=== PATIENT | female | born 1960 | race Caucasian/White ===

== ENCOUNTER 2021-06-12 18:19 | Inpatient (IN) | payer BC, SELFPAY ==
[2021-06-12 18:37] VITALS: BP 127/65; PULSE 88; RESP 18; TEMP 36.8; O2SAT 96
[2021-06-12 18:52] VITALS: BMI 33.6
[2021-06-12 20:00] VITALS: BP 85/51; PULSE 93; RESP 18; TEMP 37.6; O2SAT 94
--- NOTE | 2021-06-12 20:18 | P.HP_ITS ---
Providers/Chief Complaint Admitting Physician: Heather Maldonado MD Chief Complaint: fever History of Present Illness 61-year-old lady transferred for direct admission from outside facility where she presented due to fevers was transferred to [facility] due to history of ESRD and needing dialysis which she normally gets on Tuesdays and via left chest tunneled catheter. She states the catheter has been in place for a long time, cannot tell me exactly when it was placed, but feels it was possibly more than 6 months ago. She also has history of multiple myeloma for which she is currently on break from chemotherapy due to recent (March) reaction secondary to one of the medications, she thinks it may have been Zarxio. She had received rounds of steroids for the rash which has been gradually improving. Currently with dry scaly skin over most of her body, but no further erythema. She reports feeling tired, weak in the last several days. Denies headache, nausea, vomiting or diarrhea, cough, shortness of breath, dysuria, or a new rash. Reports has diffuse aches which she states are chronic and just her . At outside facility she received ceftriaxone and vancomycin due to urinalysis suggestive of urinary tract infection. Chest x-ray also suggests possible pneumonia with present infiltrates. COVID-19 PCR test at outside facility was negative. Review of Systems 2 Const: Reports: fever(s), chills, body aches, fatigue and malaise Eyes: Denies: change in vision or eye redness ENMT: Denies: throat pain, oral sores or ear or mastoid pain Card: Denies: chest pain, edema, pre-syncope or dyspnea on exertion Resp: Denies: dyspnea, productive cough, change in phlegm color or hemoptysis GI: Denies: abdominal pain, nausea, vomiting, diarrhea, constipation, hematochezia or melena : Denies: flank pain, urinary frequency or hematuria Musc: Denies: back pain, joint swelling or joint redness Skin/Breast: Denies: rash (no new rash, improving extensive rash/skin reaction) or new lesions Neuro: Denies: headache(s), numbness in extremities, weakness in extremities, dizziness, confusion or seizure-like activity Endo: Denies: polyuria or polydipsia Yuri/Lymph: Denies: easy bleeding or purpura All/Imm: Denies: urticaria, throat swelling or tongue swelling Medications/Allergies Allergies Allergy/AdvReac Type Severity Reaction Status Date / Time filgrastim-sndz [From Zarxio] Allergy Severe ALGY-Rash Unverified 06/12/21 20:14 PFSH Acute PFSH: Medical History (Updated 06/12/21 @ 20:29 by Reji Cruz MD) Desquamative dermatitis ESRD on hemodialysis HLD (hyperlipidemia) Hypothyroidism Multiple myeloma Nephropathy Surgical History Port-A-Cath in place Vascular dialysis catheter in place Family History Other Cancer Social History (Updated 06/12/21 @ 20:24 by Reji Cruz MD) Smoking and tobacco status: never smoked Alcohol intake: never Substance/Drug Use: never Lives independently: Yes Household members: none Marital status: Current occupational status: disabled Vitals/I&O/Wt Last Vital Signs Temp 99.6 F 06/12/21 20:00 Pulse 93 06/12/21 20:00 Resp 18 06/12/21 20:00 BP 85/51 06/12/21 20:00 Pulse Ox 94 06/12/21 20:00 06/12/21 06/12/21 06/12/21 06:59 14:59 22:59 Intake Total 480 / 480 Balance 480 / 480 Physical Exam Const: COMMON NORMALS: patient oriented x3 NUTRITIONAL APPEARANCE: overweight ORIENTATION/CONSCIOUSNESS: Yes lethargic OTHER: Weak. HENMT: COMMON NORMALS: oropharynx normal Neck/C-Spine: COMMON NORMALS: no JVD Chest: OTHER: R port, L Aquino catheter Resp: COMMON NORMALS: normal respiratory effort and clear to auscultation bilaterally AUSCULTATION: clear to auscultation bilaterally Cardio: COMMON NORMALS: no JVD, regular rhythm, S1 normal heart sound present, S2 normal heart sound present and No murmurs present (Cardio) RHYTHM: regular rhythm HEART SOUNDS: S1 normal heart sound present and S2 normal heart sound present GI: COMMON NORMALS: Normal to inspection, nondistended, normoactive bowel sounds present, Soft to palpation and non-tender PALPATION: Yes Soft to palpation Extremity: COMMON NORMALS: no joint enlargement and no pedal edema Neuro: COMMON NORMALS: patient oriented x3 and moves all extremities Skin: COMMON NORMALS: no rashes or lesions noted GENERAL SKIN EXAM: no rashes or lesions noted, crusts (L eyelids), dry skin and other (Diffuse dry/scaly/cracked skin, no erythema. No weeping.) OTHER: Small area of eryhema (1-1.5cm) around entrance of Aquino catheter. Urinary Catheter Management: Mckeon: Cath Placed During This Visit: no Urethral Indwelling: Yes Reason for Continuing Indwelling Catheter: Accurate Measurement of Urinary Output in Critically Ill Patients Urinary Catheter Date of Insertion: 06/12/21 Data Micro: Microbiology 06/12/21 19:43 Blood Culture - Preliminary Blood SPECIMEN COLLECTED 06/12/21 19:40 Blood Culture - Preliminary Blood SPECIMEN COLLECTED 06/12/21 19:30 Blood Culture - Preliminary Blood SPECIMEN COLLECTED 06/12/21 19:42 Blood Culture - Preliminary Blood SPECIMEN COLLECTED A&P Assessment and plan (1) Fever: Possible sepsis with fever, tachycardia, source urinary tract infection, possible pneumonia. Cannot exclude bacteremia given port, Aquino catheter, discriminative rash in March which is taking a long time to heal, still with dry scaly skin over large portions of her body. Blood cultures requested from periphery as well as both access sites, port and the dialysis catheter. I am told dialysis catheter cannot be collected today and will need to be collected tomorrow with dialysis. Orders in place. Continue empiric antibiotic coverage at this time with Levaquin, vancomycin cover for pneumonia, urinary tract infection, possible translocation from the skin or catheter infection. Collect urine culture. Urine bacterial antigens, sputum culture if able to provide. MRSA PCR. COVID-19 PCR was negative. Status: Acute (2) Hypotension: Suspect likely adrenal insufficiency given history of multiple myeloma with chemotherapy, likely steroid use, but also recent steroids following this, the rash which she is no longer taking. Need arterial pressure 62 mmHg. Additional small bolus 250 mL of saline. Monitor blood pressure. Stress dose hydrocortisone. Possible septic shock, although less likely, not given 30 cc/kg due to ESRD, oliguria. Lactic acid 2.3-1.3. Recheck lactic acid. Status: Acute (3) UTI (urinary tract infection): Complicated UTI. Levaquin. Follow-up urine culture. Will obtain renal CT to exclude obstructive uropathy. Status: Acute (4) Pneumonia: Covid negative. Sputum culture. Bacterial antigens. MRSA PCR. Levaquin, vancomycin. Status: Acute (5) ESRD on hemodialysis: TS schedule. Nephrology consult. Status: Acute (6) Vascular dialysis catheter in place: She reports it may have been in place longer than 6 months. She is not aware of any plans for fistula or other access. Normally follows with nephrology in [place]. Blood cultures requested. Status: Acute (7) Port-A-Cath in place: Blood cultures collected. Status: Acute (8) Desquamative dermatitis: This has been gradually resolving. Still dry scaly skin over a large portion of her body. No erythema, weeping, sign of infection currently. Status: Acute (9) Multiple myeloma: Reports she is on break from chemotherapy given discomfort of rash which she believes was temporally related to Zarxio. Normally follows with hematology in [place]. Status: Acute (10) Hypothyroidism: Status: Acute Attestations Medical Necessity Statement*: Admission of over 2 midnights is anticipated for assessment management of fever, possible sepsis, possible septic shock with hypotension in a lady with underlying ESRD, multiple vascular access devices, multiple myeloma Coding Level of Care Code Acute Research Instrumentation Technician for [facility] Fwd Diagnoses Fever R50.9 Hypotension I95.9 UTI (urinary tract infection) N39.0 Pneumonia J18.9 ESRD on hemodialysis N18.6; Z99.2 V[address] dialysis catheter in place Z99.2 Port-A-Cath in place Z95.828 Desquamative dermatitis L30.8 Multiple myeloma C90.00 Hypothyroidism E03.9
[2021-06-12] MEDS: sodium chloride 0.9% 250 ML IV (20:33)
[2021-06-12 20:34] LABS: Lactic Sepsis W/Reflex 1.5 mmol/L (0.5-2.2)
--- NOTE | 2021-06-12 20:34 | CTR_ITS ---
PROCEDURE INFORMATION: Exam: CT Abdomen And Pelvis Without Contrast Exam date and time: 06/12/2021 8:34 PM Age: 61 years old Clinical indication: Abdominal pain; Generalized; Additional info: Complicated UTI TECHNIQUE: Imaging protocol: Computed tomography of the abdomen and pelvis without contrast. Radiation optimization: All CT scans at this facility use at least one of these dose optimization techniques: automated exposure control; mA and/or kV adjustment per patient size (includes targeted exams where dose is matched to clinical indication); or iterative reconstruction. COMPARISON: No relevant prior studies available. RADIATION DOSE METRICS: Total DLP (mGy-cm): 1801.1 FINDINGS: Tubes, catheters and devices: The urinary bladder is decompressed by catheter. Partially visualized implanted venous access port in the right chest wall. Lungs: Scattered small micro nodular opacities in the lung bases and the middle lobe and lingula. These nodules measure no more than 5 mm. Pleural spaces: Small symmetric pleural effusions with bibasilar atelectasis. Liver: 2 cm probable cyst in the right hepatic lobe. Gallbladder and bile ducts: A 1 cm gallstone in the gallbladder is nonobstructing. Pancreas: Normal. No ductal dilation. Spleen: Normal. No splenomegaly. Adrenal glands: Normal. No mass. Kidneys and ureters: Normal. No hydronephrosis. Stomach and bowel: Increased gas within the midportion of the colon. However there is no mechanical obstruction or wall thickening. Normal small bowel. Appendix: No evidence of appendicitis. Intraperitoneal space: Unremarkable. No free air. No significant fluid collection. Vasculature: Unremarkable. No abdominal aortic aneurysm. Lymph nodes: Unremarkable. No enlarged lymph nodes. Urinary bladder: Unremarkable as visualized. Reproductive: The uterus is distorted by numerous fibroids measuring up to 5 cm. Bones/joints: Chronic lower lumbar degenerative changes. There is also a mild chronic superior endplate fracture of L4. Subtle sclerotic lesion in the L1 vertebral body Soft tissues: Unremarkable. CT/CT kidney stone [id number] IMPRESSION: 1. No acute abdominal or pelvic findings. 2. Multi fibroid uterus and nonobstructing gallstones. 3. Pleural effusions with basilar atelectasis. 4. Multiple small nodular opacities in both lungs, significance uncertain. These could be postinflammatory but metastatic disease is not ruled out. Recommend comparison with priors, if available. If not, short-term follow-up. 5. Subtle area of sclerosis and L1. Suspect a hemangioma but the appearance is not definitive.
[2021-06-12] MEDS: heparin 5,000 unit/mL INJ 1 mL 5000 UNIT SUBCUT (20:35)
[2021-06-12] MEDS: hydrocortisone 100 mg/2 mL SDV IVP (20:42)
[2021-06-12] MEDS: levofloxacin-dextrose 5 % 750 MG/150 ML PREMIX 100 MG IV (20:48)
[2021-06-12 21:10] LABS: Add Urine Culture? No; Add Urine Microscopic? YES; Amorphous Sediment Urine 1+ /hpf; Bacteria Urine 1+ /hpf; Bilirubin Urine Neg (Negative); Blood Urine 2+ (Negative); Glucose Urine UA Norm (Normal); Ketones Urine Negative (Negative); Leukocyte Esterase Urine 2+ (Negative); Nitrate Urine Positive (Negative); Protein Urine 1+ (Negative); RBC Urine 0-4 /hpf (0-2); Squamous Epithelial Cell Urine 0-4 /hpf (0-5); Urine Appearance Clear (CLEAR); Urine Color Yellow (Yellow); Urobilinogen Urine Norm (Negative); WBC Urine TOO NUMEROUS TO CNT /hpf (0-5); pH Urine 5 (5-7)
[2021-06-12 23:33] VITALS: BP 101/62; PULSE 93; RESP 18; TEMP 36.8; O2SAT 94
[2021-06-12 23:46] LABS: Glomerular Filtration Rate 6.6 mL/min (90-130)
[2021-06-13] VITALS (8 sets, daily range): BP systolic 91–108; BP diastolic 53–71; PULSE 68–101; RESP 16–20; TEMP 36.4–37.4; O2SAT 93–98
[2021-06-13] MEDS: vancomycin 1,000 MG in sodium chloride 0.9% 250 ML 250 MG IV ×2 (00:34→20:09)
[2021-06-13] MEDS: hydrocortisone 100 mg/2 mL SDV IVP ×4 (02:30→20:31)
[2021-06-13 05:24] LABS: Basophils # 0.1 10^3/uL (0.0-0.1); Basophils % 0.7 %; Hemoglobin 8.6 g/dL (11.5-15.3); Lymphocytes # 0.2 10^3/uL (0.8-4.8); Lymphocytes % 1.3 %; Mean Corpuscular HGB Conc 33.1 g/dL (30.0-36.0); Mean Corpuscular Hemoglobin 32.6 pg (28.0-34.0); Mean Corpuscular Volume 98.5 fl (81-99); Mean Platelet Volume 11.5 fL (7.4-10.4); Monocytes # 0.7 10^3/uL (0.2-0.9); Monocytes % 5.6 %; Neutrophils # 11.51 10^3/uL (1.8-7.7); Nucleated Red Blood Cells % 0 %; Platelet Count 89 10^3/cmm (130-400); Red Blood Count 2.64 10^6/uL (4.1-5.3); White Blood Count 12.7 10^3/uL (4.0-10.0)
[2021-06-13 05:44] LABS: Alanine Aminotransferase 59 U/L (0-33); Albumin Level 2.4 g/dL (3.5-5.2); Alkaline Phosphatase 154 IU/L (35-105); Anion Gap 21.6 (5-19); Aspartate Amino Transferase 80 U/L (0-32); Calcium 7.6 mg/dL (8.5-10.5); Carbon Dioxide 17 mmol/L (22-29); Chloride 96 mmol/L (98-107); Globulin 2.3 g/dL (1.3-4.6); Glomerular Filtration Rate 6.6 mL/min (90-130); Glucose 127 mg/dL (65-115); Magnesium 2.6 mg/dL (1.7-2.3); Osmolality Calculated 304 mOsm/kg (285-295); Phosphorus 5.8 mg/dL (2.5-4.5); Potassium 4.6 mmol/L (3.5-5.1); Sodium 130 mmol/L (136-145); Total Bilirubin 0.5 mg/dL (0.15-1.2); Total Protein 4.7 g/dL (6.6-8.7)
[2021-06-13 05:47] LABS: Blood Urea Nitrogen 104 mg/dL (8-23)
[2021-06-13 06:03] LABS: Slide Review Slide Review Perform
[2021-06-13] MEDS: heparin 5,000 unit/mL INJ 1 mL 5000 UNIT SUBCUT ×2 (08:40→20:00)
--- NOTE | 2021-06-13 09:31 | PM.CONSULT ---
Providers/Reason For Consult Consulting Physician/Specialty*: Nephro Reason for Consult*: Eval for ESRD Attending Physician: Reji Cruz History of Present Illness History of Present Illness Thank you for consultation, today at the pleasure of reviewing this 61-year-old female for evaluation of end-stage renal disease and its management. She is on dialysis on Tuesdays and Saturdays and last got dialysis last Saturday. End-stage renal disease she believes secondary to multiple myeloma, however, she is not 100% sure. She presents with fevers and generally feeling unwell. Initial evaluation has demonstrated evidence of urinary tract infection, possible pneumonia. Blood cultures are sent and pending. She has a hemodialysis port in the left chest wall. Review of Systems Narrative: ROS - 12 point review of systems completed per HPI and subjective assessment, this includes Constitutional: Weakness, fatigue Respiratory: No SOB on exertion, comfortable at rest CardioVasc: No chest pain, palpitations Gastrointestinal: No nausea, no vomiting Neurological: No seizures, no AMS Derm: No new rashes, lesions or wounds Immunological: No seasonal and no food allergies Medications/Allergies Allergies Allergy/AdvReac Type Severity Reaction Status Date / Time filgrastim-sndz [From Zarxio] Allergy Severe ALGY-Rash Verified 06/13/21 08:56 Current Medications Generic Name Dose Route Start Last Admin Trade Name Freq PRN Reason Stop Dose Admin Heparin Sodium (Porcine) 5,000 unit 06/12/21 20:00 06/13/21 08:40 Heparin 5,000 Unit/Ml Inj 1 Ml SUBCUT 5,000 unit Q12H DESIREE Administration Hydrocortisone Sodium Succinate 100 mg 06/12/21 20:00 06/13/21 08:40 Hydrocortisone 100 Mg/2 Ml Sdv IVP 100 mg Q6H DESIREE Administration Levofloxacin/Dextrose 750 mg in 150 mls @ 100 mls/hr 06/12/21 19:45 06/12/21 22:25 Levaquin-D5w IV Infused Q48H DESIREE Infusion Protocol PFSH Acute PFSH: Medical History (Updated 06/12/21 @ 20:29 by Reji Cruz MD) Desquamative dermatitis ESRD on hemodialysis HLD (hyperlipidemia) Hypothyroidism Multiple myeloma Nephropathy Surgical History Port-A-Cath in place Vascular dialysis catheter in place Family History Other Cancer Social History (Updated 06/12/21 @ 20:24 by Reji Cruz MD) Smoking and tobacco status: never smoked Alcohol intake: never Substance/Drug Use: never Lives independently: Yes Household members: none Marital status: Current occupational status: disabled Vitals/I&O/Wt Last Vital Signs Temp 98.4 F 06/13/21 08:00 Pulse 74 06/13/21 08:00 Resp 18 06/13/21 08:00 BP 106/54 06/13/21 08:00 Pulse Ox 98 06/13/21 08:00 06/12/21 06/13/21 06/13/21 22:59 06:59 14:59 Intake Total 880 / 880 250 / 1130 500 / 500 Output Total 450 / 450 Balance 880 / 880 -200 / 680 500 / 500 Weight last 48 hrs Weight 74.48 kg Weight 109.316 kg Physical Exam Narrative: Constitutional: Awake, comfortable HEENT: Wet mucosa, no jvp, non icteric Lungs: Bilaterally clear without discernible wheeze, rales in all lung zones CVS: S1 S2, no murmurs Abdo: Soft, BS ok Ext 4: Minimal edema, peripheral perfusion with no cyanosis Neurological: Grossly non-focal Urinary Catheter Management: Mckeon: Cath Placed During This Visit: yes Urethral Indwelling: Yes Reason for Continuing Indwelling Catheter: Accurate Measurement of Urinary Output in Critically Ill Patients Urinary Catheter Date of Insertion: 06/12/21 Data : 06/13/21 05:15 06/13/21 05:15 Micro: Microbiology 06/12/21 20:30 Bacterial Antigens - Final Urine,Clean Catch 06/12/21 20:30 Legionella Urinary Antigen - Final Urine Catheterized 06/12/21 19:43 Blood Culture - Preliminary Blood SPECIMEN COLLECTED 06/12/21 19:40 Blood Culture - Preliminary Blood SPECIMEN COLLECTED 06/12/21 19:30 Blood Culture - Preliminary Blood SPECIMEN COLLECTED 06/12/21 19:42 Blood Culture - Preliminary Blood SPECIMEN COLLECTED A&P Assessment and plan (1) ESRD on hemodialysis: 1. ESRD We will plan to do hemodialysis today, 2K bath, ultrafiltration 2 L Daily evaluation for dialysis needs, likely plan to do dialysis again on Saturday if she remains in the hospital. Dose medication for GFR less than 15 on dialysis. 2. Fevers She feels generally poorly, nonspecific and nonlocalizing symptoms. Denies symptoms of urinary tract infection and denies symptoms of pneumonia. Blood cultures pending, if positive will take out dialysis catheter. 3. Anemia, thrombocytopenia Continue to monitor during hospitalization, likely secondary to myeloma/chemo, will defer management to outpatient scalp treatment specialist. 4. Chemistry Minor noncritical aberration including low sodium, acidosis, should correct with dialysis. Corrected calcium within normal range 5. Hemodynamics Soft blood pressure, being treated empirically for adrenal insufficiency, being treated for sepsis. Thank you for consultation Cheikh Waddell MD Nephrology [phone] Patient seen and examined via telemedicine, with the assistance of the bedside RN > 25 min spent in evaluation and mgmt of patient Status: Acute Consult Attestations Medical Necessity Statement: eval for ESRD Coding Level of Care Code Acute Auto Inspector for [facility] Diagnoses ESRD on hemodialysis N18.6; Z99.2
--- NOTE | 2021-06-13 10:55 | PC.CHAP ---
Pastoral Care Encounter/Spiritual Assessment Type of Contact [] Declined physical fitness teacher visit [] Patient/Family/Request visit [] Outpatient visit [] Follow-up visit [] Physician referral [] Code/Alert [x] Routine visit [] Staff referral [] Actively dying [] Patient sleeping [] Family support [] [] Out of room [] Palliative care [] [] Receiving care in room [] Pre-surgical visit [] Trauma [] Long length of stay [] ICU visit [] Other: Relational/Emotional Strength [x] Patient feels connected with others/family/visitors/staff [] Distress [] Loneliness/isolation [] Abandonment Spirituality of Patient [x] Person of Jaclyn [] Attends Quaker of their Jaclyn [x] Believes in Prayer [] Reads Bible or Zoroastrian materials [] There are Spiritual issues to be addressed Chief Unit Forester Interventions [x] Prayer [x] Active listening [x] Non-anxious presence [x] Spiritual/emotional support [] Crisis/trauma care [] Spiritual counseling [] Bereavement support [] Provided bereavement packet [] Provided Bible/devotional materials [] Provided toy/stuffed animal, coloring book to patient or family member [] Provided Communion [] Anointing/[place] [] Salvation [x] Completed spiritual assessment [] Other: Impact on Illness or Injury [] Angry [] Fearful [] Anxious [] Often cries [] Exhaustion [] Unable to work [] Unable to attend sikhism [] Unable to walk/stand [] Unable to read [] Unable to drive [] Unable to eat/drink [] Unable to sleep [] Unable to be with family [] Patient intubated [] Other: Summary Pt says she has never and has no children. She lives alone with a variety of animals. Her brother who lives nearby is caring for her animals while she is in hospital. She has numerous friends also checking in on her. Time spent with patient 10m
[2021-06-13 12:12] LABS: Bacillus cereus group Not Detected (NOT DETECT); Bacillus subtillis group Not Detected (NOT DETECT); Corynebacterium Not Detected (NOT DETECT); Cutibacterium acnes (P.acnes) Not Detected (NOT DETECT); Enterococcus Not Detected (NOT DETECT); Enterococcus faecalis Not Detected (NOT DETECT); Enterococcus faecium Not Detected (NOT DETECT); Lactobacillus species Not Detected (NOT DETECT); Listeria Not Detected (NOT DETECT); Listeria monocytogenes Not Detected (NOT DETECT); Micrococcus Not Detected (NOT DETECT); Pan Candida Not Detected (NOT DETECT); Pan Gram-Negative Not Detected (NOT DETECT); Staphylococcus epidermidis Not Detected (NOT DETECT); Staphylococcus lugdunensis Not Detected (NOT DETECT); Staphylococcus species Detected (NOT DETECT); Streptococcus agalactiae Not Detected (NOT DETECT); Streptococcus anginosus group Not Detected (NOT DETECT); Streptococcus pneumoniae Not Detected (NOT DETECT); Streptococcus pyogenes Not Detected (NOT DETECT); Streptococcus species Not Detected (NOT DETECT); mecA Not Detected (NOT DETECT); mecC Not Detected (NOT DETECT)
--- NOTE | 2021-06-13 14:12 | PC.NURSE ---
Patient to Dialysis at this time.
--- NOTE | 2021-06-13 14:59 | PM.PN ---
Subjective Subjective: She still overall not feeling well, but is feeling better than yesterday. Although stronger. With more energy. Blood pressures have improved today. Vitals/I&O/Wt Last Vital Signs Temp 98.6 F 06/13/21 11:57 Pulse 68 06/13/21 11:57 Resp 17 06/13/21 11:57 BP 106/58 06/13/21 11:57 Pulse Ox 97 06/13/21 11:57 06/12/21 06/13/21 06/13/21 22:59 06:59 14:59 Intake Total 880 / 880 250 / 1130 1220 / 1220 Output Total 450 / 450 Balance 880 / 880 -200 / 680 1220 / 1220 Weight last 48 hrs Weight 74.48 kg Weight 109.316 kg Physical Exam Const: COMMON NORMALS: patient oriented x3 NUTRITIONAL APPEARANCE: overweight OTHER: More alert, interactive. HENMT: COMMON NORMALS: oropharynx normal Neck/C-Spine: COMMON NORMALS: no JVD Chest: OTHER: R port, L Aquino catheter Resp: COMMON NORMALS: normal respiratory effort and clear to auscultation bilaterally AUSCULTATION: clear to auscultation bilaterally Cardio: COMMON NORMALS: no JVD, regular rhythm, S1 normal heart sound present, S2 normal heart sound present and No murmurs present (Cardio) RHYTHM: regular rhythm HEART SOUNDS: S1 normal heart sound present and S2 normal heart sound present GI: COMMON NORMALS: Normal to inspection, nondistended, normoactive bowel sounds present, Soft to palpation and non-tender PALPATION: Yes Soft to palpation Extremity: COMMON NORMALS: no joint enlargement and no pedal edema Neuro: COMMON NORMALS: patient oriented x3 and moves all extremities Skin: COMMON NORMALS: no rashes or lesions noted GENERAL SKIN EXAM: no rashes or lesions noted, crusts (L eyelids), dry skin and other (Diffuse dry/scaly/cracked skin, no erythema. No weeping.) OTHER: Improved small area of eryhema (1-1.5cm) around entrance of Aquino catheter. Urinary Catheter Management: Mckeon: Cath Placed During This Visit: yes Urethral Indwelling: Yes Reason for Continuing Indwelling Catheter: Accurate Measurement of Urinary Output in Critically Ill Patients Urinary Catheter Date of Insertion: 06/12/21 Data : 06/13/21 05:15 06/13/21 05:15 Micro: Microbiology 06/12/21 19:43 Blood Culture - Preliminary Blood SPECIMEN COLLECTED 06/12/21 19:40 Blood Culture - Preliminary Blood SPECIMEN COLLECTED 06/12/21 19:30 Blood Culture - Preliminary Blood SPECIMEN COLLECTED 06/12/21 19:42 Blood Culture - Preliminary Blood Staphylococcus aureus 06/12/21 20:30 MRSA Culture - Final Nose 06/13/21 12:11 Blood Culture - Preliminary Blood SPECIMEN COLLECTED 06/13/21 12:09 Blood Culture - Preliminary Blood SPECIMEN COLLECTED 06/12/21 20:30 Bacterial Antigens - Final Urine,Clean Catch 06/12/21 20:30 Legionella Urinary Antigen - Final Urine Catheterized A&P Assessment and plan (1) Fever: Today leukocytosis 12.7. Fever appears to be better, with resolution of tachycardia. Complicated urinary tract infection with sepsis possible pneumonia. No obstructive uropathy on CT abdomen pelvis. Possible bacteremia, now with positive peripheral blood culture 1/3 bottles with Staph aureus. Follow-up cultures and remaining blood cultures to get a better idea if true bacteremia. Cannot exclude bacteremia given port, Aquino catheter, discriminative rash in March which is taking a long time to heal, still with dry scaly skin over large portions of her body. Urine bacterial antigens negative. MRSA negative. COVID-19 PCR was negative. Continue Levaquin, vancomycin. Status: Acute (2) Positive blood culture: Status: Acute (3) Hypotension: Blood pressure improved with stress dose steroids. Continue for now. Will need a taper. Discussed with her. Suspect likely adrenal insufficiency given history of multiple myeloma with chemotherapy, likely steroid use, but also recent steroids following this, the rash which she is no longer taking. Status: Acute (4) UTI (urinary tract infection): Complicated UTI. Levaquin. Follow-up urine culture. Will obtain renal CT to exclude obstructive uropathy. Status: Acute (5) Pneumonia: Covid negative. Sputum culture. Bacterial antigens. MRSA PCR. Levaquin, vancomycin. Status: Acute (6) ESRD on hemodialysis: TS schedule. Nephrology consult. HD today. Blood pressure has been better, did not require pressors, improved with stress dose steroids, but blood pressure softer with dialysis. Requested midodrine. Status: Acute (7) Vascular dialysis catheter in place: She reports it may have been in place longer than 6 months. She is not aware of any plans for fistula or other access. Normally follows with nephrology in [place]. Blood cultures requested. Status: Acute (8) Port-A-Cath in place: Blood cultures collected. Status: Acute (9) Desquamative dermatitis: This has been gradually resolving. Still dry scaly skin over a large portion of her body. No erythema, weeping, sign of infection currently. Status: Acute (10) Multiple myeloma: Reports she is on break from chemotherapy given discomfort of rash which she believes was temporally related to Zarxio. Normally follows with hematology in [place]. Status: Acute (11) Hypothyroidism: Status: Acute (12) Pulmonary nodules: Incidentally noted on CT abdomen pelvis. Uncertain significance. Possibly postinflammatory, metastatic disease not excluded. Will need comparison with prior studies once following up in [place]. If not available possibly short-term imaging follow-up. Status: Acute Attestations Medical Necessity Statement*: Continue admission for assessment of management of improving sepsis, pneumonia, complicated GI, possible bacteremia in a lady with multiple vascular access devices. ESRD. Coding Level of Care Code Acute Sergeant At Arms for [employer] Fwd Diagnoses Fever R50.9 Hypotension I95.9 UTI (urinary tract infection) N39.0 Pneumonia J18.9 ESRD on hemodialysis N18.6; Z99.2 Vascular dialysis catheter in place Z99.2 Port-A-Cath in place Z95.828 Desquamative dermatitis L30.8 Multiple myeloma C90.00 Hypothyroidism E03.9 Positive blood culture R78.81 Pulmonary nodules R91.8
[2021-06-13] MEDS: midodrine 5 mg TABLET PO ×2 (15:07→22:37)
--- NOTE | 2021-06-13 15:13 | PC.HD ---
Difficulty drawing from both ports. Immediately upon treatment initiation, this RN had to reverse lines. Continued issues with AP alarms. Within 10 min circuit had clotted to the point where blood from circuit was unable to be returned. Restrung and received orders for loading dose of heparin 2000 units. trx initiated again with continued high AP pressures which necessitated lowering BFR to 250 in order to obtain any kind of trx. BP dropped to 77/48 after administration of steroids and midodrine. UF turned off.
[2021-06-13] MEDS: alteplase 1 mg/mL SDV 2 mL 4 MG INTRACATH (15:53)
--- NOTE | 2021-06-13 18:46 | PC.NURSE ---
Report to [facility] at this time.
[2021-06-14] VITALS (7 sets, daily range): BP systolic 92–107; BP diastolic 54–67; PULSE 87–95; RESP 18–19; TEMP 36.6–37.3; O2SAT 92–95
[2021-06-14] MEDS: hydrocortisone 100 mg/2 mL SDV IVP ×2 (02:46→08:32)
[2021-06-14 05:41] LABS: Basophils # 0.2 10^3/uL (0.0-0.1); Basophils % 0.9 %; Hematocrit 25.9 % (37.0-47.0); Hemoglobin 8.8 g/dL (11.5-15.3); Lymphocytes # 0.4 10^3/uL (0.8-4.8); Lymphocytes % 2.1 %; Mean Corpuscular Hemoglobin 33.2 pg (28.0-34.0); Mean Corpuscular Volume 97.7 fl (81-99); Mean Platelet Volume 12.9 fL (7.4-10.4); Monocytes # 0.9 10^3/uL (0.2-0.9); Monocytes % 4.5 %; Neutrophils # 18.45 10^3/uL (1.8-7.7); Neutrophils % 90.2 %; Nucleated Red Blood Cells % 0 %; Platelet Count 109 10^3/cmm (130-400); Red Blood Count 2.65 10^6/uL (4.1-5.3); Red Cell Distribution Width 15.2 % (12.1-15.1); White Blood Count 20.5 10^3/uL (4.0-10.0)
[2021-06-14 06:07] LABS: Alanine Aminotransferase 84 U/L (0-33); Albumin Level 2.4 g/dL (3.5-5.2); Alkaline Phosphatase 152 IU/L (35-105); Anion Gap 19.2 (5-19); Aspartate Amino Transferase 113 U/L (0-32); Blood Urea Nitrogen 76 mg/dL (8-23); Carbon Dioxide 21 mmol/L (22-29); Chloride 96 mmol/L (98-107); Globulin 1.7 g/dL (1.3-4.6); Glomerular Filtration Rate 10.2 mL/min (90-130); Glucose 165 mg/dL (65-115); Osmolality Calculated 300 mOsm/kg (285-295); Potassium 4.2 mmol/L (3.5-5.1); Sodium 132 mmol/L (136-145); Total Bilirubin 0.4 mg/dL (0.15-1.2); Total Protein 4.1 g/dL (6.6-8.7)
[2021-06-14] MEDS: heparin 5,000 unit/mL INJ 1 mL 5000 UNIT SUBCUT ×2 (08:32→19:28)
--- NOTE | 2021-06-14 09:48 | P.PN_ITS ---
Subjective Subjective: Dialysis went well yesterday, however, the line was sluggish, alteplase currently instilled into the dialysis ports. No further fevers or chills. Blood culture noted to be positive for staph aureus. She feels better since admission. Remains a little bit weak but otherwise okay. Vitals/I&O/Wt Last Vital Signs Temp 97.8 F 06/14/21 07:51 Pulse 91 06/14/21 07:51 Resp 19 H 06/14/21 04:00 BP 103/67 06/14/21 07:51 Pulse Ox 94 06/14/21 07:51 06/13/21 06/14/21 06/14/21 22:59 06:59 14:59 Intake Total 490 / 1710 780 / 2490 Output Total 300 / 300 Balance 490 / 1710 480 / 2190 Weight last 48 hrs Weight 74.979 kg Weight 74.48 kg Weight 109.316 kg Physical Exam Narrative: Constitutional: Awake, comfortable HEENT: Wet mucosa, no jvp, non icteric Lungs: Bilaterally clear without discernible wheeze, rales in all lung zones CVS: S1 S2, no murmurs Abdo: Soft, BS ok Ext 4: Minimal edema, peripheral perfusion with no cyanosis Neurological: Grossly non-focal Urinary Catheter Management: Mckeon: Cath Placed During This Visit: yes Urethral Indwelling: Yes Reason for Continuing Indwelling Catheter: Accurate Measurement of Urinary Output in Critically Ill Patients Urinary Catheter Date of Insertion: 06/12/21 Data : 06/14/21 05:19 06/14/21 05:19 Micro: Microbiology 06/12/21 20:30 Legionella Urinary Antigen - Final Urine Catheterized Urine Culture - Preliminary Staphylococcus aureus 06/12/21 19:43 Blood Culture - Preliminary Blood NEGATIVE TO DATE 06/12/21 19:40 Blood Culture - Preliminary Blood NEGATIVE TO DATE 06/12/21 19:30 Blood Culture - Preliminary Blood NEGATIVE TO DATE 06/12/21 19:42 Blood Culture - Preliminary Blood Staphylococcus aureus 06/12/21 20:30 MRSA Culture - Final Nose 06/13/21 12:11 Blood Culture - Preliminary Blood SPECIMEN COLLECTED 06/13/21 12:09 Blood Culture - Preliminary Blood SPECIMEN COLLECTED 06/12/21 20:30 Bacterial Antigens - Final Urine,Clean Catch A&P Assessment and plan (1) ESRD on hemodialysis: 1. ESRD Received dialysis yesterday. Plan next dialysis treatment on Saturday.l. Dose medication for GFR less than 15 on dialysis. 2. Fevers She feels generally poorly, nonspecific and nonlocalizing symptoms. Denies symptoms of urinary tract infection and denies symptoms of pneumonia. Staph aureus noted in 1 out of 3 blood cultures, apparently positive from outsi de referring facility. May need line to be removed. 3. Anemia, thrombocytopenia Continue to monitor during hospitalization, likely secondary to myeloma/chemo, will defer management to outpatient insurance verification rep 4. Chemistry Minor noncritical aberration including low sodium, acidosis noted, monitor for now 5. Hemodynamics Soft blood pressure, being treated empirically for adrenal insufficiency, being treated for sepsis. Thank you for consultation Cheikh Waddell MD Nephrology [phone] Patient seen and examined via telemedicine, with the assistance of the bedside RN > 25 min spent in evaluation and mgmt of patient Status: Acute Attestations Medical Necessity Statement*: Eval for ESRD Coding Level of Care Code Acute Bow Maker Gift Wrapping for Julius Deluna Diagnoses ESRD on hemodialysis N18.6; Z99.2
[2021-06-14] MEDS: hydrocortisone 100 mg/2 mL SDV 50 MG IVP ×2 (13:35→21:36)
--- NOTE | 2021-06-14 18:08 | P.CONIM_ITS ---
Providers/Reason For Consult Consulting Physician/Specialty*: Dwayne Victor MD Reason for Consult*: Catheters induced Bactremia Requesting Physician: Dr Cruz Attending Physician: Reji Cruz History of Present Illness History of Present Illness Chief complaint: I am sick with catheters HPI: Ms.Darlene Pickard is a 61 year old female with multiple medical problems includin g but not limited to end-stage renal disease and poor IV access that required placement of left upper chest tunneled hemodialysis catheter and right upper chest PowerPort at outside facility back in December 2020. Patient was transferred to [facility] from outside facility because of persistent fevers. Also the patient does have history of desquamation of the skin and history of multiple myeloma. Blood cultures were obtained and there was a concern about contamination versus a true infection reflecting bacteremia might be related to different devices the patient has. CT scan Abdomen and Pelvis: 1. No acute abdominal or pelvic findings. 2. Multi fibroid uterus and nonobstructing gallstones. 3. Pleural effusions with basilar atelectasis. 4. Multiple small nodular opacities in both lungs, significance uncertain. These could be postinflammatory but metastatic disease is not ruled out. Recommend comparison with priors, if available. If not, short-term follow-up. 5. Subtle area of sclerosis and L1. Suspect a hemangioma but the appearance is not definitive. Patient does undergo hemodialysis Tuesdays and Saturdays weekly. General surgery was consulted for further evaluation potential explantation of the intravascular devices and potential explantation ? Review of Systems General: Reports: 10 or more systems reviewed and unremarkable except in HPI and below Medications/Allergies Home Medications Medication Instructions Recorded Confirmed Last Taken Type acyclovir 200 mg capsule 200 mg PO BID 06/13/21 06/13/21 Unknown History clobetasol 0.05 % topical ointment 1 applic TOPICAL DAILY 06/13/21 06/13/21 Unknown History famotidine 20 mg tablet See Rx Instructions .ROUTE .COMPLEX 06/13/21 06/13/21 Unknown History hydroxyzine HCl 25 mg tablet 25 mg PO QID 06/13/21 06/13/21 Unknown History levothyroxine 50 mcg tablet 50 mcg PO DAILY 06/13/21 06/13/21 Unknown History lidocaine HCl 2.5 % topical 1 ea TOPICAL DAILY PRN 06/13/21 06/13/21 Unknown History ointment simvastatin 20 mg tablet 20 mg PO DAILY 06/13/21 06/13/21 Unknown History Allergies Allergy/AdvReac Type Severity Reaction Status Date / Time filgrastim-sndz [From [facility]] Allergy Severe ALGY-Rash Verified 06/14/21 18:11 Current Medications Generic Name Dose Route Start Last Admin Trade Name Freq PRN Reason Stop Dose Admin Heparin Sodium (Porcine) 5,000 unit 06/12/21 20:00 06/14/21 08:32 Heparin 5,000 Unit/Ml Inj 1 Ml SUBCUT 5,000 unit Q12H DESIREE Administration Hydrocortisone Sodium Succinate 50 mg 06/14/21 14:30 06/14/21 13:35 Hydrocortisone 100 Mg/2 Ml Sdv IVP 50 mg Q6H DESIREE Administration Midodrine 5 mg 06/13/21 14:57 06/13/21 22:37 Midodrine 5 Mg Tablet PO 5 mg TID PRN Administration HYPOTENSION PFSH Acute PFSH: Medical History Desquamative dermatitis ESRD on hemodialysis HLD (hyperlipidemia) Hypothyroidism Multiple myeloma Nephropathy Surgical History Port-A-Cath in place Vascular dialysis catheter in place Family History Other Cancer Social History Smoking and tobacco status: never smoked Alcohol intake: never Substance/Drug Use: never Lives independently: Yes Household members: none Marital status: Current occupational status: disabled Vitals/I&O/Wt Last Vital Signs Temp 98.6 F 06/14/21 16:00 Pulse 87 06/14/21 16:00 Resp 18 06/14/21 16:00 BP 107/65 06/14/21 16:00 Pulse Ox 95 06/14/21 16:00 06/14/21 06/14/21 06/14/21 06:59 14:59 22:59 Intake Total 780 / 2490 240 / 240 Output Total 300 / 300 250 / 250 Balance 480 / 2190 -10 / -10 Weight last 48 hrs Weight 165 lb 4.8 oz Weight 164 lb 3.2 oz Weight 241 lb Physical Exam Narrative: Patient is conscious alert oriented X3 No apparent distress BMI Head and neck examination PERRLA no masses no cervical lymphadenopathy no jaundice Right upper chest Port-A-Cath in place and left upper chest tunneled hemodialysis catheter Cardiac examination audible S1-S2 no murmurs no gallops no arrhythmias Chest is clear bilateral,abscence of Rhonchi or wheezes,no surgical emphysema Abdomen nontender nondistended soft no organomegaly guarding or rigidity/no signs of peritonitis Generalized exfoliative skin disorder Extremities no cyanosis no clubbing no edema Urinary Catheter Management: Mckeon: Cath Placed During This Visit: yes Urethral Indwelling: Yes Reason for Continuing Indwelling Catheter: Accurate Measurement of Urinary Output in Critically Ill Patients Urinary Catheter Date of Insertion: 06/12/21 Data : 06/15/21 03:23 06/15/21 03:23 Micro: Microbiology 06/13/21 12:11 Blood Culture - Preliminary Blood NEGATIVE TO DATE 06/13/21 12:09 Blood Culture - Preliminary Blood NEGATIVE TO DATE 06/12/21 19:42 Blood Culture - Preliminary Blood Staphylococcus aureus 06/12/21 20:30 Legionella Urinary Antigen - Final Urine Catheterized Urine Culture - Preliminary Staphylococcus aureus 06/12/21 19:43 Blood Culture - Preliminary Blood NEGATIVE TO DATE 06/12/21 19:40 Blood Culture - Preliminary Blood NEGATIVE TO DATE 06/12/21 19:30 Blood Culture - Preliminary Blood NEGATIVE TO DATE 06/12/21 20:30 MRSA Culture - Final Nose A&P Assessment and plan (1) Fever: Plan of care; After thorough history physical examination and reviewing the chart and reviweing the images with my personal intrepretation.and further discussing the case with Dr. Sampson the hand stemmer and Dr. Cruz hospitalist .I counseled the patient for removal of right upper chest Port-A-Cath and left upper tunneled hemodialysis catheter, indications, risks including possibility of , stroke, heart attack, major bleeding, infection, pneumonia, organ failure, failure to benefit, prolonged hospital stay, pain after the procedure pneumothorax that may require Chest tube(s) placement and potential injury of major vascular structures that may require Thoractomy, benefits,indications and alternatives were all discussed with the patient, patient understands and is interested to proceed. Rationale was carefully and clearly discussed with the patient.Appropriate informed consent have been reviewed and signed. Status: Acute Coding Level of Care Code Acute Director Of Instrumental Music for g Fwd Diagnoses Fever R50.9
--- NOTE | 2021-06-14 18:34 | P.CONIM_ITS ---
Providers/Reason For Consult Consulting Physician/Specialty*: KELSI Mooney MD/cardiology Reason for Consult*: Patient with bacteremia, multiple IV access site; rule out endocarditis Requesting Physician: Dr. Cruz Attending Physician: Reji Cruz History of Present Illness History of Present Illness Cierra Pickard is a 61 year old female who is transferred to ICU from [facility] present with complaints of generalized weakness/lethargy. She was found to have low-grade fever. Had a urine showed evidence of UTI. Chest x-ray was suggestive of pneumonia. Urine culture and blood culture grew with gram-positive cocci. Cardiology consult is requested to consider NIRAJ to evaluate for any endocarditis. This patient is known to have end-stage renal disease and is on hemodialysis since December of last year. He gets hemodialysis, twice a week. Her hemodialysis catheter in the subclavian vein has been there since December. She denies any chest pain or chest tightness. No unusual shortness of breath. No abdominal pain or dysuria. No hemoptysis or diarrhea. She has no history for any dysphagia. No history for upper GI bleed. No history for endocarditis. She is diagnosed with multiple myeloma and is on chemotherapy. Fairly she developed some skin rashes causing extensive exfoliation. Review of Systems Const: Reports: fever(s), chills, body aches, fatigue and malaise Eyes: Denies: change in vision or eye redness ENMT: Denies: throat pain, oral sores or ear or mastoid pain Card: Denies: chest pain, edema, pre-syncope or dyspnea on exertion Resp: Denies: dyspnea, productive cough, change in phlegm color or hemoptysis GI: Denies: abdominal pain, nausea, vomiting, diarrhea, constipation, amy tochezia or melena : Denies: flank pain, urinary frequency or hematuria Musc: Denies: back pain, joint swelling or joint redness Skin/Breast: Reports: rash (no new rash, improving extensive rash/skin reaction) and other (Extensive exfoliation of skin); Denies: new lesions Neuro: Denies: headache(s), numbness in extremities, weakness in extremities, dizziness, confusion or seizure-like activity Endo: Denies: polyuria or polydipsia Amy/Lymph: Denies: easy bleeding or purpura All/Imm: Denies: urticaria, throat swelling or tongue swelling Medications/Allergies Home Medications Medication Instructions Recorded Confirmed Last Taken Type acyclovir 200 mg capsule 200 mg PO BID 06/13/21 06/13/21 Unknown History clobetasol 0.05 % topical ointment 1 applic TOPICAL DAILY 06/13/21 06/13/21 Unknown History famotidine 20 mg tablet See Rx Instructions .ROUTE .COMPLEX 06/13/21 06/13/21 Unknown History hydroxyzine HCl 25 mg tablet 25 mg PO QID 06/13/21 06/13/21 Unknown History levothyroxine 50 mcg tablet 50 mcg PO DAILY 06/13/21 06/13/21 Unknown History lidocaine HCl 2.5 % topical 1 ea TOPICAL DAILY PRN 06/13/21 06/13/21 Unknown History ointment simvastatin 20 mg tablet 20 mg PO DAILY 06/13/21 06/13/21 Unknown History Allergies Allergy/AdvReac Type Severity Reaction Status Date / Time filgrastim-sndz [From [facility]] Allergy Severe ALGY-Rash Verified 06/14/21 18:11 Current Medications Generic Name Dose Route Start Last Admin Trade Name Freq PRN Reason Stop Dose Admin Heparin Sodium (Porcine) 5,000 unit 06/12/21 20:00 06/14/21 08:32 Heparin 5,000 Unit/Ml Inj 1 Ml SUBCUT 5,000 unit Q12H DESIREE Administration Hydrocortisone Sodium Succinate 50 mg 06/14/21 14:30 06/14/21 13:35 Hydrocortisone 100 Mg/2 Ml Sdv IVP 50 mg Q6H DESIREE Administration Midodrine 5 mg 06/13/21 14:57 06/13/21 22:37 Midodrine 5 Mg Tablet PO 5 mg TID PRN Administration HYPOTENSION PFSH Acute PFSH: Medical History Desquamative dermatitis ESRD on hemodialysis HLD (hyperlipidemia) Hypothyroidism Multiple myeloma Nephropathy Surgical History Port-A-Cath in place Vascular dialysis catheter in place Family History Other Cancer Social History Smoking and tobacco status: never smoked Alcohol intake: never Substance/Drug Use: never Lives independently: Yes Household members: none Marital status: Current occupational status: disabled Vitals/I&O/Wt Last Vital Signs Temp 98.6 F 06/14/21 16:00 Pulse 87 06/14/21 16:00 Resp 18 06/14/21 16:00 BP 107/65 06/14/21 16:00 Pulse Ox 95 06/14/21 16:00 06/14/21 06/14/21 06/14/21 06:59 14:59 22:59 Intake Total 780 / 2490 240 / 240 Output Total 300 / 300 250 / 250 Balance 480 / 2190 -10 / -10 Weight last 48 hrs Weight 165 lb 4.8 oz Weight 164 lb 3.2 oz Weight 241 lb Physical Exam Narrative: GENERAL: The patient is alert and oriented times three. Not in any acute distress. HEENT: Moderate pallor. No icterus or lymphadenopathy.Oral cavity: There are no mucous membrane lesions. NECK: Trachea appears to be central. No masses noted. No JVD or thyromegaly appreciated. RESPIRATORY: Chest is symmetrical. No intercostals muscle retraction or any accessory muscle activation. There is no chest wall tenderness. Breath sounds are heard bilaterally. Scattered occasional crackles in the bases. BREASTS: Deferred. HEART: The heart sounds are normal. No S3 or S4. Systolic murmur in the left sternal border. No diastolic murmurs.. No pericardial rub ABDOMEN: No vessel pulsations or distention. No tenderness. No organomegaly appreciated. Bowel sounds are normally heard. : Deferred. RECTAL: Deferred. LYMPHATIC: No lymphadenopathy noted in the neck. EXTREMITIES: 1-2+ edema both lower extremities. MUSCULOSKELETAL: No acute joint deformities or swelling SKIN: Extensive exfoliation of the skin. NEUROPSYCHIATRIC: The patient is alert and oriented x3. Appears to be in a good mood. No tremors or rigidity noted. Urinary Catheter Management: Mckeon: Cath Placed During This Visit: yes Urethral Indwelling: Yes Reason for Continuing Indwelling Catheter: Accurate Measurement of Urinary Output in Critically Ill Patients Urinary Catheter Date of Insertion: 06/12/21 Data : 06/14/21 05:19 06/14/21 05:19 Micro: Microbiology 06/13/21 12:11 Blood Culture - Preliminary Blood NEGATIVE TO DATE 06/13/21 12:09 Blood Culture - Preliminary Blood NEGATIVE TO DATE 06/12/21 19:42 Blood Culture - Preliminary Blood Staphylococcus aureus 06/12/21 20:30 Legionella Urinary Antigen - Final Urine Catheterized Urine Culture - Preliminary Staphylococcus aureus 06/12/21 19:43 Blood Culture - Preliminary Blood NEGATIVE TO DATE 06/12/21 19:40 Blood Culture - Preliminary Blood NEGATIVE TO DATE 06/12/21 19:30 Blood Culture - Preliminary Blood NEGATIVE TO DATE 06/12/21 20:30 MRSA Culture - Final Nose A&P Assessment and plan (1) Positive blood culture: The source of infection is not clear at this time. Patient has features of pneumonia and possible UTI. Endocarditis is a consideration especially in view of entry renal disease and in situ hemodialysis catheter. The risk of aspi ration, bleeding, soft tissue injury, perforation of the stomach/esophagus and other concomitant complications were explained to the patient in detail. The patient understood this well and consented to proceed. We may go ahead and schedule this procedure, sometime tomorrow. Status: Acute (2) ESRD on hemodialysis: Management as per the primary Status: Acute (3) Hypothyroidism: Clinically seems to be euthyroid. Status: Acute (4) UTI (urinary tract infection): Status: Acute (5) Hypotension: Etiology is not clear. Hypoadrenalism, sepsis, generalized debilitation, etc. are contributing factors Status: Acute Plan Other Problems are multiple myeloma End-stage renal disease On hemodialysis Moderate anemia Leukocytosis Based on the results of the NIRAJ, further recommendations will be made Consult Attestations Medical Necessity Statement: Patient requires continued hospital stay for close monitoring and further management Coding Level of Care Code Acute Loss Prevention Investigator for Chg Fwd History Detailed Exam Detailed Medical Decision Making Moderate Complexity Diagnoses Positive blood culture R78.81 ESRD on hemodialysis N18.6; Z99.2 Hypothyroidism E03.9 UTI (urinary tract infection) N39.0 Hypotension I95.9
[2021-06-14] MEDS: levofloxacin-dextrose 5 % 500 MG/100 ML PREMIX 100 MG IV (19:29)
--- NOTE | 2021-06-14 21:12 | P.PN_ITS ---
Subjective Subjective: She has overall been feeling better, but generally weak, to the point has been having difficulty lifting legs off the bed. No headache, nausea or vomiting. Vitals/I&O/Wt Last Vital Signs Temp 98.4 F 06/14/21 20:00 Pulse 87 06/14/21 20:00 Resp 18 06/14/21 20:00 BP 94/57 06/14/21 20:00 Pulse Ox 92 06/14/21 20:00 06/14/21 06/14/21 06/14/21 06:59 14:59 22:59 Intake Total 780 / 2490 240 / 240 100 / 340 Output Total 300 / 300 250 / 250 400 / 650 Balance 480 / 2190 -10 / -10 -300 / -310 Weight last 48 hrs Weight 74.979 kg Weight 74.48 kg Physical Exam Const: COMMON NORMALS: patient oriented x3 GENERAL APPEARANCE: lethargic NUTRITIONAL APPEARANCE: overweight ORIENTATION/CONSCIOUSNESS: Yes lethargic OTHER: More alert, interactive. HENMT: COMMON NORMALS: oropharynx normal Neck/C-Spine: COMMON NORMALS: no JVD Chest: OTHER: R port, L Aquino catheter Resp: COMMON NORMALS: normal respiratory effort and clear to auscultation bilaterally AUSCULTATION: clear to auscultation bilaterally Cardio: COMMON NORMALS: no JVD, regular rhythm, S1 normal heart sound present, S2 normal heart sound present and No murmurs present (Cardio) RHYTHM: regular rhythm HEART SOUNDS: S1 normal heart sound present and S2 normal heart sound present GI: COMMON NORMALS: Normal to inspection, nondistended, normoactive bowel sounds present, Soft to palpation and non-tender PALPATION: Yes Soft to palpation Extremity: COMMON NORMALS: no joint enlargement and no pedal edema Neuro: COMMON NORMALS: patient oriented x3 and moves all extremities SENSORIUM/ORIENTATION: Yes lethargic Skin: COMMON NORMALS: no rashes or lesions noted GENERAL SKIN EXAM: no rashes or lesions noted, crusts (L eyelids), dry skin and other (Diffuse dry/scaly/cracked skin, no erythema. No weeping.) OTHER: Improved small area of eryhema (1-1.5cm) around entrance of Aquino catheter. Urinary Catheter Management: Mckeon: Cath Placed During This Visit: yes Urethral Indwelling: Yes Reason for Continuing Indwelling Catheter: Accurate Measurement of Urinary Outpu t in Critically Ill Patients Urinary Catheter Date of Insertion: 06/12/21 Data : 06/14/21 05:19 06/14/21 05:19 Micro: Microbiology 06/13/21 12:11 Blood Culture - Preliminary Blood NEGATIVE TO DATE 06/13/21 12:09 Blood Culture - Preliminary Blood NEGATIVE TO DATE 06/12/21 19:42 Blood Culture - Preliminary Blood Staphylococcus aureus 06/12/21 20:30 Legionella Urinary Antigen - Final Urine Catheterized Urine Culture - Preliminary Staphylococcus aureus 06/12/21 19:43 Blood Culture - Preliminary Blood NEGATIVE TO DATE 06/12/21 19:40 Blood Culture - Preliminary Blood NEGATIVE TO DATE 06/12/21 19:30 Blood Culture - Preliminary Blood NEGATIVE TO DATE A&P Assessment and plan (1) Staphylococcus aureus bacteremia: Staph aureus bacteremia 2/3 bottles. Reported drawn from periphery. Also Staph aureus bacteremia reported at outside facility, unknown source. Staph aureus UTI as well, multifocal pneumonia, concern for possible septic embolic disease. Continue vancomycin. Discussed with cardiology for arrangement of NIRAJ due to high concern of endocarditis. Discussed with nephrology, surgery for assessment for removal of intravascular devices. Follow-up blood cultures. Status: Acute (2) Fever: So far no longer febrile. Staph aureus bacteremia. Staph aureus UTI. Pneumonia versus septic embolic disease. Urine bacterial antigens negative. MRSA negative. COVID-19 PCR was negative. Continue Levaquin, vancomycin. Status: Acute (3) UTI (urinary tract infection): Complicated UTI. Levaquin. Follow-up urine culture. Will obtain renal CT to exclude obstructive uropathy. Status: Acute (4) Hypotension: Bruit. Tapered down stress dose steroids. Suspect likely adrenal insufficiency given history of multiple myeloma with chemotherapy, likely steroid use, but also recent steroids following this, the rash which she is no longer taking. Status: Acute (5) Pneumonia: Covid negative. Sputum culture. Bacterial antigens. MRSA PCR. Multiple small nodule opacities in the lungs incidentally noted on CT abdomen pelvis. Possible septic embolic disease. NIRAJ arrangements. Levaquin, vancomycin. Status: Acute (6) ESRD on hemodialysis: TS schedule. Nephrology consult. Additional dialysis timing with consideration of intravascular device removal, line holiday. Status: Acute (7) Vascular dialysis catheter in place: She reports it may have been in place longer than 6 months. She is not aware of any plans for fistula or other access. Normally follows with nephrology in [place]. Blood cultures requested. Staph aureus bacteremia, so far only in periphery. Status: Acute (8) Port-A-Cath in place: Blood cultures collected. Status: Acute (9) Desquamative dermatitis: This has been gradually resolving. Still dry scaly skin over a large portion of her body. No erythema, weeping, sign of infection currently. Status: Acute (10) Multiple myeloma: Reports she is on break from chemotherapy given discomfort of rash which she believes was temporally related to Zarxio. Normally follows with hematology in [place]. Status: Acute (11) Hypothyroidism: Status: Acute (12) Pulmonary nodules: Incidentally noted on CT abdomen pelvis. Uncertain significance. Possibly postinflammatory, metastatic disease not excluded. Will need comparison with prior studies once following up in [place]. If not available possibly short-term imaging follow-up. Possibly septic embolic etiology with Staph aureus bacteremia and also growing in urine. Status: Acute Attestations Medical Necessity Statement*: Continue admission for assessment and management of Staph aureus bacteremia. Coding Level of Care Code Acute Cap Parts Cutter for Chg Fwd Diagnoses Fever R50.9 Hypotension I95.9 UTI (urinary tract infection) N39.0 Pneumonia J18.9 ESRD on hemodialysis N18.6; Z99.2 Vascular dialysis catheter in place Z99.2 Port-A-Cath in place Z95.828 Desquamative dermatitis L30.8 Multiple myeloma C90.00 Hypothyroidism E03.9 Pulmonary nodules R91.8 Staphylococcus aureus bacteremia R78.81; B95.61
[2021-06-15] VITALS (22 sets, daily range): BP systolic 93–125; BP diastolic 52–80; PULSE 53–96; RESP 16–28; TEMP 36.1–37.1; O2SAT 92–100
--- NOTE | 2021-06-15 | SCC_ITS ---
Procedure done: 1-explantation of right upper chest Port-A-Cath 2-explantation of left upper chest tunneled hemodialysis catheter 3-Fluoroscopic guidance and interpretation of both catheters 1.7 seconds of fluoroscopic guidance, for a cumulative dose of 0.2 mGy, was provided to Dr. Victor by the radiology department. C-arm images of the chest were saved for the patient's permanent record. IJE
[2021-06-15] MEDS: hydrocortisone 100 mg/2 mL SDV 50 MG IVP (03:16)
[2021-06-15 03:34] LABS: Basophils # 0.1 10^3/uL (0.0-0.1); Basophils % 0.5 %; Hematocrit 24.3 % (37.0-47.0); Hemoglobin 8.1 g/dL (11.5-15.3); Lymphocytes # 0.4 10^3/uL (0.8-4.8); Lymphocytes % 2.1 %; Mean Corpuscular HGB Conc 33.3 g/dL (30.0-36.0); Mean Corpuscular Hemoglobin 33.5 pg (28.0-34.0); Mean Corpuscular Volume 100.4 fl (81-99); Mean Platelet Volume 12.8 fL (7.4-10.4); Monocytes # 0.9 10^3/uL (0.2-0.9); Monocytes % 4.9 %; Neutrophils # 16.11 10^3/uL (1.8-7.7); Neutrophils % 88.5 %; Nucleated Red Blood Cells % 0 %; Platelet Count 119 10^3/cmm (130-400); Red Blood Count 2.42 10^6/uL (4.1-5.3); Red Cell Distribution Width 14.8 % (12.1-15.1); White Blood Count 18.2 10^3/uL (4.0-10.0)
[2021-06-15 03:59] LABS: Alanine Aminotransferase 128 U/L (0-33); Albumin Level 2.4 g/dL (3.5-5.2); Alkaline Phosphatase 162 IU/L (35-105); Anion Gap 22.1 (5-19); Aspartate Amino Transferase 128 U/L (0-32); Calcium 7.9 mg/dL (8.5-10.5); Carbon Dioxide 19 mmol/L (22-29); Chloride 91 mmol/L (98-107); Globulin 2.4 g/dL (1.3-4.6); Glomerular Filtration Rate 7.9 mL/min (90-130); Glucose 244 mg/dL (65-115); Osmolality Calculated 305 mOsm/kg (285-295); Potassium 4.1 mmol/L (3.5-5.1); Sodium 128 mmol/L (136-145); Total Bilirubin 0.4 mg/dL (0.15-1.2); Total Protein 4.8 g/dL (6.6-8.7)
[2021-06-15 04:09] LABS: Blood Urea Nitrogen 99 mg/dL (8-23)
--- NOTE | 2021-06-15 08:00 | USCV_ITS ---
Cierra Pickard Age: 61 Gender: F : 1960 Exam Date: 06/15/2021 08:29 Ordering Phys: Rajni Mooney MD ([email or web address]) Technologist: BETSY Exam Location: [facility] – [place] Indication: EVAL FOR INFECTION BP: / HR: Rhythm: Sinus Technical Quality: Adequate MEASUREMENTS (Male / Female) Normal Values Medications IV propofol, administered by the anesthesia service. Please refer to the anesthesia report, for details Complications None. Proc. Components The patient was brought to the NIRAJ examination room in a fasting state after obtaining an informed consent. The NIRAJ probe was passed into the posterior pharynx , mid-esophagus, distal esophagus, and gastric fundus. NIRAJ was performed at multiple levels. The patient tolerated the procedure well and there were no complications. FINDINGS Left Ventricle Normal LV size ejection fraction. No intracardiac masses. Right Ventricle Appears to be of normal size and ejection fraction Right Atrium The right atrium is normal in size. Echogenicity near the IVC suggesting prominent eustachian valve rudimentary. Catheter tip were noted in the superior vena cava. No masses or vegetations noted Left Atrium The left atrium is normal in size. LA Appendage Normal size and contractility. No intracavitary masses IA Septum Appears to be intact with no evidence of ASD or patent foramen ovale, based on the color flow Doppler examination and saline contrast injection Mitral Valve Mild-moderate mitral valve regurgitation. No masses or vegetations . Aortic Valve Structurally normal trileaflet aortic valve. No masses or vegetations . Tricuspid Valve Structurally normal tricuspid valve. No masses or vegetations Pulmonic Valve No masses or vegetations . Pericardium Normal pericardium without effusion. Aorta Normal ascending aorta dimension. CONCLUSIONS No intracardiac masses or vegetations. Mild to moderate mitral regurgitation. Normal LV size and ejection fraction of 60%. Intact ventricular septum. Left atrial appendage, devoid of any thrombus or masses Ascending aorta was of normal size with no unstable plaques or lesions Catheter tips are noted in the superior vena cava. No obvious masses or vegetations Dr Rajni Mooney MD FACC (Electronically Signed) Final Date: 15 June 2021 17:11 S
[2021-06-15] MEDS: sodium chloride 0.9% 1,000 ML 30 ML IV ×2 (08:03→12:50)
--- NOTE | 2021-06-15 08:06 | P.ANESASSM_ITS ---
Pre-Anesthetic Assessment Height/Weight: Height 1.8 m Weight 75.024 kg Temp Pulse Resp BP Pulse Ox 98.3 F 89 21 H 117/69 96 06/15/21 07:55 06/15/21 07:55 06/15/21 07:55 06/15/21 07:55 06/15/21 07:55 Preop Diagnosis: R/O endocarditis Operation Date: 06/15/21 08:00 Proposed Procedures p NIRAJ(Not Applicable) - Rajni Mooney MD Was Beta Temi taken within 24 hours: N/A Was Clonidine taken within 24 hours: N/A Last intake: 2400 Last Intake: 00:00 Social No alcohol and No tobacco Exam alert, oriented x 3, clear to auscultation bilaterally and regular rate & rhythm Airway Submandibular: within normal limits Cervical ROM: within normal limits Mallampati: Class II Dentition: full History/ROS No significant history except as noted and No significant complaints Pulmonary None reported CV/HEM None reported Chronic Renal Failure Dialysed Saturday Hepatic None reported GI None reported Metabolic Thyroid Disease [facility] [place]/[facility]ds[facility] None reported Neuropsych None reported Anesthetic Plan ASA status: 3 Anesthesia: Anesthesia Evaluation and MAC Risk of > 500 ml blood loss (7ml/kg in children): No Medications/Allergies Home Medications Medication Instructions Recorded Confirmed Last Taken Type acyclovir 200 mg capsule 200 mg PO BID 06/13/21 06/13/21 Unknown History clobetasol 0.05 % topical ointment 1 applic TOPICAL DAILY 06/13/21 06/13/21 Unknown History famotidine 20 mg tablet See Rx Instructions .ROUTE .COMPLEX 06/13/21 06/13/21 Unknown History hydroxyzine HCl 25 mg tablet 25 mg PO QID 06/13/21 06/13/21 Unknown History levothyroxine 50 mcg tablet 50 mcg PO DAILY 06/13/21 06/13/21 Unknown History lidocaine HCl 2.5 % topical 1 ea TOPICAL DAILY PRN 06/13/21 06/13/21 Unknown History ointment simvastatin 20 mg tablet 20 mg PO DAILY 06/13/21 06/13/21 Unknown History Allergies Allergy/AdvReac Type Severity Reaction Status Date / Time [id number] [From Zaacostao] Allergy Severe ALGY-Rash Verified 06/14/21 18:11 Current Medications Generic Name Dose Route Start Last Admin Trade Name Freq PRN Reason Stop Dose Admin Heparin Sodium (Porcine) 5,000 unit 06/12/21 20:00 06/14/21 19:28 Heparin 5,000 Unit/Ml Inj 1 Ml SUBCUT 5,000 unit Q12H DESIREE Administration Hydrocortisone Sodium Succinate 50 mg 06/14/21 14:30 06/15/21 03:16 Hydrocortisone 100 Mg/2 Ml Sdv IVP 50 mg Q6H DESIREE Administration Levofloxacin/Dextrose 500 mg in 100 mls @ 100 mls/hr 06/14/21 20:00 06/14/21 20:59 Levaquin-D5w IV Infused Q48H DESIREE Infusion Midodrine 5 mg 06/13/21 14:57 06/13/21 22:37 Midodrine 5 Mg Tablet PO 5 mg TID PRN Administration HYPOTENSION PFSH Anesthesia Medical History Desquamative dermatitis ESRD on hemodialysis HLD (hyperlipidemia) Hypothyroidism Multiple myeloma Nephropathy Surgical History Port-A-Cath in place Vascular dialysis catheter in place Family History Other Cancer Social History Smoking and tobacco status: never smoked Alcohol intake: never Substance/Drug Use: never Lives independently: Yes Household members: none Marital status: Current occupational status: disabled Data Anesthesia : 06/15/21 03:23 06/15/21 03:23 Short CBC 06/14/21 06/15/21 Range/Units 05:19 03:23 WBC 20.5 H 18.2 H (4.0-10.0) 10^3/uL Hgb 8.8 L 8.1 L (11.5-15.3) g/dL Hct 25.9 L 24.3 L (37.0-47.0) % MCV 97.7 100.4 H (81-99) fl Plt Count 109 L 119 L (130-400) 10^3/cmm Neut % (Auto) 90.2 88.5 % Neut # (Auto) 18.45 H 16.11 H (1.8-7.7) 10^3/uL BMP 06/14/21 06/15/21 05:19 03:23 Sodium 132 L 128 L Potassium 4.2 4.1 Chloride 96 L 91 L Carbon Dioxide 21 L 19 L BUN 76 H 99 H* Creatinine 4.4 H 5.5 H Glucose 165 H 244 H Calcium 7.0 L 7.9 L Liver Function 06/14/21 06/15/21 Range/Units 05:19 03:23 Total Bilirubin 0.4 0.4 (0.15-1.2) mg/dL AST 113 H 128 H (0-32) U/L ALT 84 H 128 H (0-33) U/L Alkaline Phosphatase 152 H 162 H (35-105) IU/L Albumin 2.4 L 2.4 L (3.5-5.2) g/dL Microbiology 06/13/21 12:11 Blood Culture - Preliminary Blood NEGATIVE TO DATE 06/13/21 12:09 Blood Culture - Preliminary Blood NEGATIVE TO DATE 06/12/21 19:42 Blood Culture - Preliminary Blood Staphylococcus aureus 06/12/21 20:30 Legionella Urinary Antigen - Final Urine Catheterized Urine Culture - Preliminary Staphylococcus aureus Cardiac Studies: No Data to Display
--- NOTE | 2021-06-15 08:22 | PC.HD ---
At conclusion of HD on Sunday, June 13, 2021, this RN instilled CathFlo into both HD catheter ports due to abysmal flow during dialysis. It was left to dwell overnight. Upon removing CathFlo dwell on , the arterial port appeared slightly improved, but this RN was unable to draw at all from the venous port. In addition, the tubing of the venous port was noted to have several kinks or areas of tube collapse. These findings were reported to patient's primary RN, Barbie, with a suggestion of possibly replacing the catheter completely, due to this RN's suspicion that the catheter will not provide a satisfactory hemodialysis.
--- NOTE | 2021-06-15 10:07 | P.PN_ITS ---
Subjective Subjective: Events noted, another culture now positive for Staph Aureus. Otherwise she feels well, no uremic Sx, minimal edema, and breathing comfortably. Vitals/I&O/Wt Last Vital Signs Temp 97 F L 06/15/21 08:43 Pulse 77 06/15/21 09:10 Resp 18 06/15/21 09:10 BP 102/52 06/15/21 09:10 Pulse Ox 95 06/15/21 09:10 06/14/21 06/15/21 06/15/21 22:59 06:59 14:59 Intake Total 340 / 580 240 / 820 250 / 250 Output Total 400 / 650 850 / 1500 Balance -60 / -70 -610 / -680 250 / 250 Weight last 48 hrs Weight 75.024 kg Weight 74.979 kg Physical Exam Narrative: Constitutional: Awake, comfortable HEENT: Wet mucosa, no jvp, non icteric Lungs: Bilaterally clear without discernible wheeze, rales in all lung zones CVS: S1 S2, no murmurs Abdo: Soft, BS ok Ext 4: Minimal edema, peripheral perfusion with no cyanosis Neurological: Grossly non-focal Urinary Catheter Management: Mckeon: Cath Placed During This Visit: yes Urethral Indwelling: Yes Reason for Continuing Indwelling Catheter: Accurate Measurement of Urinary Output in Critically Ill Patients Urinary Catheter Date of Insertion: 06/12/21 Data : 06/15/21 03:23 06/15/21 03:23 Micro: Microbiology 06/13/21 12:11 Blood Culture - Preliminary Blood NEGATIVE TO DATE 06/13/21 12:09 Blood Culture - Preliminary Blood NEGATIVE TO DATE 06/12/21 19:42 Blood Culture - Preliminary Blood Staphylococcus aureus 06/12/21 20:30 Legionella Urinary Antigen - Final Urine Catheterized Urine Culture - Preliminary Staphylococcus aureus A&P Assessment and plan (1) ESRD on hemodialysis: 1. ESRD Daily eval for dialysis, likely to be able to defer dialysis until Saturday/Saturday next week and have another tunneled line placed Dose medication for GFR less than 15 on dialysis. 2. Fevers Stap Aureus noted Lines to be removed NIRAJ negative 3. Anemia, thrombocytopenia Continue to monitor during hospitalization, likely secondary to myeloma/chemo, will defer management to outpatient engraver set up operator 4. Chemistry Minor noncritical aberration including low sodium, acidosis noted, monitor for now 5. Hemodynamics Soft blood pressure, being treated empirically for adrenal insufficiency, being treated for sepsis. Thank you for consultation Cheikh Waddell MD Nephrology [phone] Patient seen and examined via telemedicine, with the assistance of the bedside RN > 25 min spent in evaluation and mgmt of patient Status: Acute Attestations Medical Necessity Statement*: eval for renal failure Coding Level of Care Code Acute Nuisance Wildlife Specialist for g Fwd Diagnoses ESRD on hemodialysis N18.6; Z99.2
--- NOTE | 2021-06-15 10:49 | SC_ITS ---
WS: [id number] C-arm fluoroscopy for dialysis catheter insertion, 06/15/2021 Clinical Data: surgery Comparison: None. Findings: Dr. Victor inserted a left dialysis catheter into the subclavian vein and it ends in the superior v elbert cava. SC/C-arm FL for CVA [id number] Impression: Left dialysis catheter insertion.
--- NOTE | 2021-06-15 12:15 | PC.NURSE ---
Patient to surgery at this time.
[2021-06-15] MEDS: lidocaine 2% INJ 20 mL INJECTION (13:27)
--- NOTE | 2021-06-15 13:45 | P.OP_ITS ---
Operative Report Date of procedure: June 15, 2021 Pre-op diagnosis: Preop Diagnosis fever, bacteremia related to intravascular devices Post-op diagnosis: The same Procedure done: 1-explantation of right upper chest Port-A-Cath 2-explantation of left upper chest tunneled hemodialysis catheter 3-Fluoroscopic guidance and interpretation of both catheters Specimens removed/disposition: Right upper chest Port-A-Cath tip for cultures and sensitivity Left upper chest hemodialysis exit site swabs for cultures and sensitivity Surgeon: Dwayne Victor MD Post Graduate Intern: global position system technician Marie Circulating nurse Petra Anesthesia: MAC (Joe Suárez) Estimated blood loss (mL): 10 Procedure: After identifying the patient in the holding area, informed consent per chart ,patient was then transferred to the operative suite, was placed in supine position, IV propofol was infused by the anesthesia provider and both arms were tucked, prep and drape of the right and left upper chest regions were done under the usual sterile technique. Time-out was done verifying the patient's name/date of /planned procedure and destination after the procedure, all were in agreement. A basic C arm fluoroscopy picture was obtained to see the baseline location of the right upper chest Port-A-Cath and the left upper chest tunneled hemodialysis catheter and the look to be in appropriate position. That interpretation was done by me through the whole entire procedure. I started by injection of lidocaine 2% at the site of the planned incision started by an transverse incision including the previous scar of the right upper chest Port-A-Cath placement, further dissection was done and port was explanted and pressure was held onto the right subclavian vein for about 5 minutes. Copious irrigation of the wound was done and did not show any signs of infection. Followed by closure by 3-0 Vicryl then 4-0 Monocryl and Steri- Strips. The tip of the Port-A-Cath catheter was sent for cultures and sensitivities. Attention was now deviated towards the left upper chest tunneled hemodialysis catheter after removal of the sutures and dissection at the site of exit the HD catheter, there was a gush of pus about 5 to 10 mL, swabs were taken for cultures and sensitivities, the catheter was then explanted easily, at this po int the catheter was removed at the same time direct pressure was applied at the site of the right subclavian stick to prevent bleeding. Thorough irrigation of the left upper chest hemodialysis cath exit site was done followed by hemostasis, debridement was done to the bed of the wound. Followed by [id number] hemostatic suture 3-0 nylon then pressure dressing Patient tolerated the procedure well, count of instruments, needles and sponges were completed at the end of the procedure.And then patient was transferred to the recovery area in stable condition. I Was present for the whole entire procedure
--- NOTE | 2021-06-15 16:28 | PM.PN ---
Subjective Subjective: She is overall doing better. She is generally weak, needing quite a bit of assistance. Weak lifting her legs, she describes some tightness/aching, she feels possibly from dry skin. But at the same time like pain in her bones . Does not have overt back pain. Denies headache, neck pain. Vitals/I&O/Wt Last Vital Signs Temp 97.5 F L 06/15/21 15:53 Pulse 70 06/15/21 15:53 Resp 16 06/15/21 15:53 BP 107/64 06/15/21 15:53 Pulse Ox 94 06/15/21 15:53 06/15/21 06/15/21 06/15/21 06:59 14:59 22:59 Intake Total 240 / 820 450 / 450 Output Total 850 / 1500 5 / 5 Balance -610 / -680 445 / 445 Weight last 48 hrs Weight 75.024 kg Weight 74.979 kg Physical Exam Const: COMMON NORMALS: patient oriented x3 NUTRITIONAL APPEARANCE: overweight ORIENTATION/CONSCIOUSNESS: Yes awake OTHER: More alert, interactive. HENMT: COMMON NORMALS: oropharynx normal Neck/C-Spine: COMMON NORMALS: no JVD Chest: OTHER: R port, L Aquino catheter Resp: COMMON NORMALS: normal respiratory effort and clear to auscultation bilaterally AUSCULTATION: clear to auscultation bilaterally Cardio: COMMON NORMALS: no JVD, regular rhythm, S1 normal heart sound present, S2 normal heart sound present and No murmurs present (Cardio) RHYTHM: regular rhythm HEART SOUNDS: S1 normal heart sound present and S2 normal heart sound present GI: COMMON NORMALS: Normal to inspection, nondistended, normoactive bowel sounds present, Soft to palpation and non-tender PALPATION: Yes Soft to palpation Extremity: COMMON NORMALS: no joint enlargement and no pedal edema Neuro: COMMON NORMALS: patient oriented x3 and moves all extremities Skin: COMMON NORMALS: no rashes or lesions noted GENERAL SKIN EXAM: no rashes or lesions noted, crusts (L eyelids), dry skin and other (Diffuse dry/scaly/cracked skin, no erythema. No weeping.) OTHER: Improved small area of eryhema (1-1.5cm) around entrance of Aquino catheter. Urinary Catheter Management: Mckeon: Cath Placed During This Visit: yes Urethral Indwelling: Yes Reason for Continuing Indwelling Catheter: Accurate Measurement of Urinary Output in Critically Ill Patients Urinary Catheter Date of Insertion: 06/12/21 Data : 06/15/21 03:23 06/15/21 03:23 Micro: Microbiology 06/12/21 19:30 Blood Culture - Preliminary Blood 06/12/21 19:42 Blood Culture - Preliminary Blood Staphylococcus aureus 06/12/21 20:30 Legionella Urinary Antigen - Final Urine Catheterized Urine Culture - Final Staphylococcus aureus 06/13/21 12:11 Blood Culture - Preliminary Blood NEGATIVE TO DATE 06/13/21 12:09 Blood Culture - Preliminary Blood NEGATIVE TO DATE A&P Assessment and plan (1) Staphylococcus aureus bacteremia: Underwent NIRAJ today, no vegetation, paravalvular abscess noted. Given immunocompromised with MM and residual renal function with baseline dialysis only twice a week proceeded with removal of intravascular devices today as well. Tip sent for culture. Of note about 1 cc abscess noted at distal access site of hemodialysis catheter, evacuated. I would suspect this may have been the site of entry for her bacteremia MSSA. Given leg weakness, although does have generalized weakness, reports some discomfort radiating down the legs as well, with staphylococcal bacteremia will assess MRI thoracic and lumbar spine. Staph aureus bacteremia now 3/3 bottles. Reported drawn from periphery. Also Staph aureus bacteremia reported at outside facility, unknown source of sample Staph aureus UTI as well, multifocal pneumonia, concern for possible septic embolic disease. Continue vancomycin. Will need at least 2 weeks of IV antibiotic therapy after discharge. Follow-up blood cultures. Status: Acute (2) Fever: So far no longer febrile. Staph aureus bacteremia. Staph aureus UTI. Pneumonia versus septic embolic disease. Urine bacterial antigens negative. MRSA negative. COVID-19 PCR was negative. Continue Levaquin, vancomycin. Status: Acute (3) UTI (urinary tract infection): Complicated UTI. No obstructive uropathy. Continue vancomycin. Status: Acute (4) Hypotension: Better. Tapering steroids. Switch to prednisone and continue to wean. Suspect likely adrenal insufficiency given history of multiple myeloma with chemotherapy, likely steroid use, but also recent steroids following this, the rash which she is no longer taking. Status: Acute (5) Pneumonia: Covid negative. Sputum culture. Bacterial antigens. MRSA PCR. Multiple small nodule opacities in the lungs incidentally noted on CT abdomen pelvis. Possible septic embolic disease. NIRAJ arrangements. Levaquin, vancomycin. Status: Acute (6) ESRD on hemodialysis: TS schedule. Nephrology consult. Kendall Townsend catheter infection, removed. Line holiday. Status: Acute (7) Vascular dialysis catheter in place: With noted 1 cc abscess had distal point of access, evacuated. She reports it may have been in place longer than 6 months. She is not aware of any plans for fistula or other access. Normally follows with nephrology in [place]. Blood cultures requested. Staph aureus bacteremia, so far only in periphery. Status: Acute (8) Port-A-Cath in place: Blood cultures collected. Status: Acute (9) Desquamative dermatitis: This has been gradually resolving. Still dry scaly skin over a large portion of her body. No erythema, weeping, sign of infection currently. Status: Acute (10) Multiple myeloma: Reports she is on break from chemotherapy given discomfort of rash which she believes was temporally related to Zarxio. Normally follows with hematology in [place]. Status: Acute (11) Hypothyroidism: Status: Acute (12) Pulmonary nodules: Incidentally noted on CT abdomen pelvis. Uncertain significance. Possibly postinflammatory, metastatic disease not excluded. Will need comparison with prior studies once following up in [place]. If not available possibly short-term imaging follow-up. Possibly septic embolic etiology with Staph aureus bacteremia and also growing in urine. Status: Acute Attestations Medical Necessity Statement*: Continue admission for assessment management of Staph aureus bacteremia. Coding Level of Care Code Acute Rubber Compounder for [facility] Fwd Exam Comprehensive Diagnoses Staphylococcus aureus bacteremia R78.81; B95.61 Fever R50.9 UTI (urinary tract infection) N39.0 Hypotension I95.9 Pneumonia J18.9 ESRD on hemodialysis N18.6; Z99.2 Vascular dialysis catheter in place Z99.2 Port-A-Cath in place Z95.828 Desquamative dermatitis L30.8 Multiple myeloma C90.00 Hypothyroidism E03.9 Pulmonary nodules R91.8
[2021-06-15] MEDS: predniSONE 20 mg Tablet PO (18:03)
--- NOTE | 2021-06-15 18:49 | PC.NURSE ---
Report to Eliane Robert LPN at this time.
--- NOTE | 2021-06-15 19:19 | ANE.PACU2 ---
Inpatient post-anesthesia follow up: Airway intact: Yes Vital signs: Temperature 98.2 F Pulse Rate 70 Respiratory Rate 16 Blood Pressure 107/64 Pulse Oximetry 94 Oxygen Delivery Me thod Room Air Oxygen Flow Rate 3 Fraction of Inspir ed Oxygen Hydration adequate: Yes Nausea and vomiting: No Pain level: 2 Mental status: Baseline
[2021-06-16] VITALS (7 sets, daily range): BP systolic 113–132; BP diastolic 68–78; PULSE 74–90; RESP 16–18; TEMP 36.8–37.2; O2SAT 94–96
[2021-06-16 03:01] LABS: Basophils # 0.1 10^3/uL (0.0-0.1); Basophils % 0.4 %; Hematocrit 25.3 % (37.0-47.0); Hemoglobin 8.3 g/dL (11.5-15.3); Lymphocytes # 0.4 10^3/uL (0.8-4.8); Lymphocytes % 2.1 %; Mean Corpuscular HGB Conc 32.8 g/dL (30.0-36.0); Mean Corpuscular Volume 97.7 fl (81-99); Monocytes # 0.5 10^3/uL (0.2-0.9); Neutrophils # 15.64 10^3/uL (1.8-7.7); Neutrophils % 91.8 %; Nucleated Red Blood Cells % 0 %; Platelet Count 158 10^3/cmm (130-400); Red Blood Count 2.59 10^6/uL (4.1-5.3); Red Cell Distribution Width 14.6 % (12.1-15.1)
[2021-06-16 03:24] LABS: Alanine Aminotransferase 84 U/L (0-33); Albumin Level 2.6 g/dL (3.5-5.2); Alkaline Phosphatase 113 IU/L (35-105); Anion Gap 20.5 (5-19); Aspartate Amino Transferase 31 U/L (0-32); Calcium 7.2 mg/dL (8.5-10.5); Carbon Dioxide 18 mmol/L (22-29); Chloride 95 mmol/L (98-107); Globulin 2.2 g/dL (1.3-4.6); Glomerular Filtration Rate 8.2 mL/min (90-130); Glucose 168 mg/dL (65-115); Osmolality Calculated 307 mOsm/kg (285-295); Potassium 4.5 mmol/L (3.5-5.1); Sodium 129 mmol/L (136-145); Total Bilirubin 0.5 mg/dL (0.15-1.2); Total Protein 4.8 g/dL (6.6-8.7)
[2021-06-16 03:27] LABS: Blood Urea Nitrogen 111 mg/dL (8-23); Vancomycin Random 19.5 ug/mL (20.0-40.0)
[2021-06-16] MEDS: predniSONE 20 mg Tablet PO ×2 (08:01→18:31)
--- NOTE | 2021-06-16 10:30 | MR_ITS ---
WS: [id number] MRI LUMBAR SPINE NONCONTRAST HISTORY: leg weakness, bacteremia COMPARISON: None available. TECHNIQUE: Sagittal and axial multisequence imaging is submitted. Mild straightening of the normal lumbar lordosis. Disc spaces are well preserved with the exception of moderate narrowing at L5-S1. No fractures or mar row edema. No evidence for discitis on this unenhanced examination. There is no fluid within the discs. Conus terminates normally at L1-2 disc level. L1-L2: No central or foraminal stenosis. Small amount of fluid in the facet joints. L2-L3: No stenosis or herniation. L3-L4: Very mild annular disc bulging and osteophytic ridging. Ligamentum flavum hypertrophy encroach es towards the thecal sac. There is fluid in the facet joints bilaterally, RIGHT greater than LEFT. L4-L5: Mild annular disc bulging with a RIGHT foraminal fissure. Moderate ligamentum flavum hypertrop hy and facet arthritis. Fluid in the facet joints bilaterally. Mild narrowing and encroachment into t he subarticular recesses bilaterally. No foraminal stenosis. L5-S1: Mild annular disc bulge with a central disc protrusion. Disc bulge or focal protrusion also en croaching upon and displacing the LEFT S1 nerve root. Mild disc encroachment but no displacement on t he RIGHT S1 nerve root. Disc and osteophyte encroaches into the foramen bilaterally. Visualized retroperitoneum is negative. MR/MR lumbar spine wo con* [id number] IMPRESSION: 1. No marrow edema or fracture. 2. Moderate degenerative disc space narrowing at L5-S1. 3. Mild encroachment into the subarticular recesses bilaterally at L5-S1 with encroachment upon the S1 nerve roots. Slightly greater encroachment with displa cement on the LEFT S1 nerve root. 4. Mild encroachment upon the subarticular recesses at L4-5. 5. Fluid in the facet joints at L1-2, L3-4 and L4-5 from synovitis.
--- NOTE | 2021-06-16 10:30 | MR_ITS ---
WS: [id number] MRI THORACIC SPINE noncontrast. HISTORY: leg weakness, bacteremia COMPARISON: None available. TECHNIQUE: Multiplanar sequences are performed in sagittal and axial planes. Long RIGHT curvature thoracic spine. Mild increase in the thoracic kyphosis. No fracture or marrow ed canelo. Disc spaces are only minimally narrowed throughout. No fracture. No high-grade central or foraminal stenosis. Signal within the cord is normal. No cord compression. T here is mild bilateral facet joint arthritis throughout the thoracic spine but not resulting in any s ignificant stenosis. Small layering bilateral pleural effusions. Cystic mass in the posterior RIGHT lobe of the liver brandon ures 16 x 15 mm. Marked costochondral arthritis on the RIGHT at the T9-10 levels. MR/MR thoracic spin wo con* [id number] IMPRESSION: 1. No high-grade central or foraminal stenosis. 2. Long mild RIGHT scoliosis thoracic spine. 3. No marrow edema. 4. Small layering bilateral pleural effusions.
--- NOTE | 2021-06-16 11:18 | PM.PN ---
Subjective Subjective: She reports he is feeling better today than she did yesterday, generally still weak. Required moderate assistance getting up from wheelchair and pivoting to bed. Denies back pain. Vitals/I&O/Wt Last Vital Signs Temp 98.2 F 06/16/21 11:17 Pulse 84 06/16/21 11:17 Resp 17 06/16/21 11:17 BP 124/74 06/16/21 11:17 Pulse Ox 96 06/16/21 11:17 06/15/21 06/16/21 06/16/21 22:59 06:59 14:59 Intake Total 480 / 930 360 / 360 Output Total 700 / 1705 700 / 2405 Balance -220 / -775 -700 / -1475 360 / 360 Weight last 48 hrs Weight 77.655 kg Weight 75.024 kg Physical Exam Const: COMMON NORMALS: patient oriented x3 NUTRITIONAL APPEARANCE: overweight ORIENTATION/CONSCIOUSNESS: Yes awake OTHER: Generally weak, gradually getting stronger compared to admission. HENMT: COMMON NORMALS: oropharynx normal Neck/C-Spine: COMMON NORMALS: no JVD Resp: COMMON NORMALS: normal respiratory effort and clear to auscultation bilaterally AUSCULTATION: clear to auscultation bilaterally Cardio: COMMON NORMALS: no JVD, regular rhythm, S1 normal heart sound present, S2 normal heart sound present and No murmurs present (Cardio) RHYTHM: regular rhythm HEART SOUNDS: S1 normal heart sound present and S2 normal heart sound present GI: COMMON NORMALS: Normal to inspection, nondistended, normoactive bowel sounds present, Soft to palpation and non-tender PALPATION: Yes Soft to palpation Extremity: COMMON NORMALS: no joint enlargement and no pedal edema Neuro: COMMON NORMALS: patient oriented x3 and moves all extremities Skin: GENERAL SKIN EXAM: dry skin and other (Diffuse dry/scaly/cracked skin, no erythema. No weeping.) OTHER: Dressing at prior site of Aquino catheter and port Urinary Catheter Management: Mckeon: Cath Placed During This Visit: yes Urethral Indwelling: Yes Reason for Continuing Indwelling Catheter: Accurate Measurement of Urinary Output in Critically Ill Patients Urinary Catheter Date of Insertion: 06/12/21 Data : 06/16/21 02:48 06/16/21 02:48 Micro: Microbiology 06/15/21 13:22 Gram Stain - Final Chest 06/15/21 13:22 Gram Stain - Final Chest 06/12/21 19:30 Blood Culture - Preliminary Blood 06/12/21 19:42 Blood Culture - Preliminary Blood Staphylococcus aureus 06/12/21 20:30 Legionella Urinary Antigen - Final Urine Catheterized Urine Culture - Final Staphylococcus aureus A&P Assessment and plan (1) Staphylococcus aureus bacteremia: Continue line holiday. With difficulties with ambulation, requiring assistance, leg pain assessed by MRI thoracic and lumbar spine, with finding of degenerative changes, without signs of epidural or paraspinal abscess on noncontrast study due to ESRD Underwent NIRAJ, no vegetation, paravalvular abscess noted. Given immunocompromised with MM and residual renal function with baseline dialysis only twice a week proceeded with removal of intravascular devices. Tip sent for culture. Of note about 1 cc abscess noted at distal access site of hemodialysis catheter, evacuated. I would suspect this may have been the site of entry for her bacteremia MSSA. Staph aureus bacteremia now 3/3 bottles. Reported drawn from periphery. Also Staph aureus bacteremia reported at outside facility, unknown source of sample Staph aureus UTI as well, multifocal pneumonia, concern for possible septic embolic disease. Continue vancomycin. Will need at least 2 weeks of IV antibiotic therapy after discharge. Discussed with her regarding going to senior living facility for rehabilitation and IV antibiotics. Status: Acute (2) Fever: So far no longer febrile. Staph aureus bacteremia. Staph aureus UTI. Pneumonia versus septic embolic disease. Urine bacterial antigens negative. MRSA negative. COVID-19 PCR was negative. Continue Levaquin, vancomycin. Status: Acute (3) UTI (urinary tract infection): Complicated UTI. No obstructive uropathy. Continue vancomycin. Status: Acute (4) Hypotension: Better. Decrease prednisone dose to 10 mg daily. Tapering steroids. Switch to prednisone and continue to wean. Suspect likely adrenal insufficiency given history of multiple myeloma with chemotherapy, likely steroid use, but also recent steroids following this, the rash which she is no longer taking. Status: Acute (5) Pneumonia: Covid negative. Sputum culture. Negative bacterial antigens. Negative MRSA PCR. Multiple small nodule opacities in the lungs incidentally noted on CT abdomen pelvis. NIRAJ unremarkable. Appears unlikely embolic disease. Unclear etiology of the nodules. Will need follow-up. Levaquin, vancomycin. Status: Acute (6) ESRD on hemodialysis: TS schedule. Nephrology consult. Kendall Townsend catheter infection, removed. Line holiday. Status: Acute (7) Vascular dialysis catheter in place: Removed With noted 1 cc abscess had distal point of access, evacuated. She reports it may have been in place longer than 6 months. She is not aware of any plans for fistula or other access. Normally follows with nephrology in [place]. Staph aureus bacteremia Status: Acute (8) Port-A-Cath in place: Removed Status: Resolved (9) Desquamative dermatitis: This has been gradually resolving. Still dry scaly skin over a large portion of her body. No erythema, weeping, sign of infection currently. Status: Acute (10) Multiple myeloma: Reports she is on break from chemotherapy given discomfort of rash which she believes was temporally related to Zarxio. Normally follows with hematology in [place]. Status: Acute (11) Hypothyroidism: Status: Acute (12) Pulmonary nodules: Multiple small nodule opacities in the lungs incidentally noted on CT abdomen pelvis. NIRAJ unremarkable. Appears unlikely embolic disease. Unclear etiology of the nodules. Will need follow-up. Status: Acute Attestations Medical Necessity Statement*: Continue admission for cyst management due to staph bacteremia. Coding Level of Care Code Acute Construction Management Assistant for g Fwd Exam Comprehensive Diagnoses Staphylococcus aureus bacteremia R78.81; B95.61 Fever R50.9 UTI (urinary tract infection) N39.0 Hypotension I95.9 Pneumonia J18.9 ESRD on hemodialysis N18.6; Z99.2 Vascular dialysis catheter in place Z99.2 Port-A-Cath in place Z95.828 Desquamative dermatitis L30.8 Multiple myeloma C90.00 Hypothyroidism E03.9 Pulmonary nodules R91.8
--- NOTE | 2021-06-16 11:41 | P.PN_ITS ---
Subjective Subjective: No new issues today, Cierra feels reasonably well. No further fevers or chills. She continues to have some low back discomfort. She just returned from MRI scan that did not demonstrate any perispinal abscesses. No uremic symptoms. No extremity edema. Vitals/I&O/Wt Last Vital Signs Temp 98.2 F 06/16/21 11:17 Pulse 84 06/16/21 11:17 Resp 17 06/16/21 11:17 BP 124/74 06/16/21 11:17 Pulse Ox 96 06/16/21 11:17 06/15/21 06/16/21 06/16/21 22:59 06:59 14:59 Intake Total 480 / 930 360 / 360 Output Total 700 / 1705 700 / 2405 Balance -220 / -775 -700 / -1475 360 / 360 Weight last 48 hrs Weight 77.655 kg Weight 75.024 kg Physical Exam Narrative: Constitutional: Awake, comfortable HEENT: Wet mucosa, no jvp, non icteric Lungs: Bilaterally clear without discernible wheeze, rales in all lung zones CVS: S1 S2, no murmurs Abdo: Soft, BS ok Ext 4: Minimal edema, peripheral perfusion with no cyanosis Neurological: Grossly non-focal Urinary Catheter Management: Mckeon: Cath Placed During This Visit: yes Urethral Indwelling: Yes Reason for Continuing Indwelling Catheter: Accurate Measurement of Urinary Output in Critically Ill Patients Urinary Catheter Date of Insertion: 06/12/21 Data : 06/16/21 02:48 06/16/21 02:48 Micro: Microbiology 06/15/21 13:22 Gram Stain - Final Chest 06/15/21 13:22 Gram Stain - Final Chest 06/12/21 19:30 Blood Culture - Preliminary Blood 06/12/21 19:42 Blood Culture - Preliminary Blood Staphylococcus aureus 06/12/21 20:30 Legionella Urinary Antigen - Final Urine Catheterized Urine Culture - Final Staphylococcus aureus A&P Assessment and plan (1) ESRD on hemodialysis: 1. ESRD No indication for dialysis today Daily eval for dialysis, likely to be able to defer dialysis until Saturday/Saturday next week and have another tunneled line placed Dose medication for GFR less than 15 on dialysis. 2. Fevers Stap Aureus noted Lines to be removed NIRAJ negative MRI without abscess 3. Anemia, thrombocytopenia Continue to monitor during hospitalization, likely secondary to myeloma/chemo, will defer management to outpatient screw machine operator 4. Chemistry Minor noncritical aberration including low sodium, acidosis noted, monitor for now I want to avoid sodium bicarb given need to avoid sodium loading 5. Hemodynamics Look pretty good Thank you for consultation Cheikh Waddell MD Nephrology [phone] Patient seen and examined via telemedicine, with the assistance of the bedside RN > 25 min spent in evaluation and mgmt of patient Status: Acute Attestations Medical Necessity Statement*: eval for ESRD Coding Level of Care Code Acute Apiculture Teacher for g Fwd Diagnoses ESRD on hemodialysis N18.6; Z99.2
[2021-06-16 11:48] LABS: Creatine Phosphokinase 37 U/L (26-192)
--- NOTE | 2021-06-16 14:24 | PC.OT ---
OT attempted to see Patient in both the am and the pm. patient denied.
--- NOTE | 2021-06-16 16:29 | PM.PN ---
Subjective Subjective: Patient overall feels better status post explantation of right upper chest Port-A-Cath and left upper chest tunneled hemodialysis catheter. Medications: Reviewed: Yes Vitals/I&O/Wt Last Vital Signs Temp 98.4 F 06/16/21 15:57 Pulse 81 06/16/21 15:57 Resp 16 06/16/21 15:57 BP 121/68 06/16/21 15:57 Pulse Ox 94 06/16/21 15:57 06/16/21 06/16/21 06/16/21 06:59 14:59 22:59 Intake Total 600 / 600 Output Total 700 / 2405 Balance -700 / -1475 600 / 600 Weight last 48 hrs Weight 171 lb 3.2 oz Weight 165 lb 6.4 oz Physical Exam Narrative: Patient is conscious alert oriented X3 No apparent distress BMI 24 Left upper chest examination was done in the presence of female participant administrator nursing staff Ambar. The stitch was removed and there was no evidence of pus or surrounding cellulitis. Follow by secondary dry gauze dressing application and tape. Urinary Catheter Management: Mckeon: Cath Placed During This Visit: yes Urethral Indwelling: Yes Reason for Continuing Indwelling Catheter: Accurate Measurement of Urinary Output in Critically Ill Patients Urinary Catheter Date of Insertion: 06/12/21 Data : 06/16/21 02:48 06/16/21 02:48 Micro: Microbiology 06/15/21 13:22 Gram Stain - Final Chest 06/15/21 13:22 Gram Stain - Final Chest 06/12/21 19:30 Blood Culture - Preliminary Blood 06/12/21 19:42 Blood Culture - Preliminary Blood Staphylococcus aureus 06/12/21 20:30 Legionella Urinary Antigen - Final Urine Catheterized Urine Culture - Final Staphylococcus aureus A&P Assessment and plan (1) ESRD on hemodialysis: Assessment 61 years old female patient status post explantation of right upper chest Port-A-Cath and left upper chest tunneled hemodialysis catheter Plan We will be awaiting for potential placement of tunneled catheter once appropriate per nephrology service Assurance and education All questions have been answered and all concerns have been addressed to patient's satisfaction. Status: Acute Attestations Medical Necessity Statement*: Per admitting service Coding Level of Care Code Acute Manager Golf for [facility] Fwd Diagnoses ESRD on hemodialysis N18.6; Z99.2
[2021-06-16] MEDS: levofloxacin-dextrose 5 % 500 MG/100 ML PREMIX 100 MG IV (20:25)
[2021-06-17] VITALS (8 sets, daily range): BP systolic 112–132; BP diastolic 66–76; PULSE 84–98; RESP 18; TEMP 36.3–36.7; O2SAT 94–97
[2021-06-17 05:49] LABS: Basophils # 0.1 10^3/uL (0.0-0.1); Basophils % 0.4 %; Hematocrit 25.6 % (37.0-47.0); Hemoglobin 8.4 g/dL (11.5-15.3); Lymphocytes # 0.3 10^3/uL (0.8-4.8); Lymphocytes % 1.5 %; Mean Corpuscular HGB Conc 32.8 g/dL (30.0-36.0); Mean Corpuscular Hemoglobin 32.4 pg (28.0-34.0); Mean Corpuscular Volume 98.8 fl (81-99); Mean Platelet Volume 11.8 fL (7.4-10.4); Monocytes # 0.5 10^3/uL (0.2-0.9); Monocytes % 2.7 %; Neutrophils # 15.51 10^3/uL (1.8-7.7); Neutrophils % 92.2 %; Nucleated Red Blood Cells % 0 %; Platelet Count 178 10^3/cmm (130-400); Red Blood Count 2.59 10^6/uL (4.1-5.3); Red Cell Distribution Width 14.4 % (12.1-15.1); White Blood Count 16.8 10^3/uL (4.0-10.0)
[2021-06-17 06:07] LABS: Alanine Aminotransferase 66 U/L (0-33); Albumin Level 2.6 g/dL (3.5-5.2); Alkaline Phosphatase 135 IU/L (35-105); Anion Gap 22.9 (5-19); Aspartate Amino Transferase 21 U/L (0-32); Carbon Dioxide 18 mmol/L (22-29); Chloride 96 mmol/L (98-107); Globulin 2.5 g/dL (1.3-4.6); Glomerular Filtration Rate 8.1 mL/min (90-130); Glucose 241 mg/dL (65-115); Potassium 4.9 mmol/L (3.5-5.1); Sodium 132 mmol/L (136-145); Total Bilirubin 0.4 mg/dL (0.15-1.2); Total Protein 5.1 g/dL (6.6-8.7)
[2021-06-17 06:56] LABS: Blood Urea Nitrogen 121 mg/dL (8-23); Osmolality Calculated 321 mOsm/kg (285-295)
[2021-06-17] MEDS: predniSONE 10 mg Tablet PO ×2 (07:51→17:07)
--- NOTE | 2021-06-17 09:00 | PM.PN ---
Subjective Subjective: Cierra feels relatively well today with no acute, new complaints. No uremic symptoms. Good urine output. No extremity edema. No fevers or chills. Medications: Reviewed: Yes Vitals/I&O/Wt Last Vital Signs Temp 97.7 F 06/17/21 07:34 Pulse 91 06/17/21 07:34 Resp 18 06/17/21 07:34 BP 112/67 06/17/21 07:34 Pulse Ox 95 06/17/21 07:34 06/16/21 06/17/21 06/17/21 22:59 06:59 14:59 Intake Total 100 / 700 Output Total 0 / 0 800 / 800 550 / 550 Balance 100 / 700 -800 / -100 -550 / -550 Weight last 48 hrs Weight 78.88 kg Weight 77.655 kg Physical Exam Narrative: Constitutional: Awake, comfortable HEENT: Wet mucosa, no jvp, non icteric Lungs: Bilaterally clear without discernible wheeze, rales in all lung zones CVS: S1 S2, no murmurs Abdo: Soft, BS ok Ext 4: Minimal edema, peripheral perfusion with no cyanosis Neurological: Grossly non-focal Urinary Catheter Management: Mckeon: Cath Placed During This Visit: yes Urethral Indwelling: Yes Reason for Continuing Indwelling Catheter: Accurate Measurement of Urinary Output in Critically Ill Patients Urinary Catheter Date of Insertion: 06/12/21 Data : 06/17/21 04:42 06/17/21 04:42 Micro: Microbiology 06/15/21 13:22 Gram Stain - Final Chest 06/15/21 13:22 Gram Stain - Final Chest A&P Assessment and plan (1) ESRD on hemodialysis: 1. ESRD No indication for dialysis today Interestingly, creatinine remains roughly stable indicating that she likely has an underlying [place] kidney function of roughly 8 mL/min. This is good news as it gives us time for her to get over the infection before having to replace the permacath Daily eval for dialysis, likely to be able to defer dialysis until Saturday/Saturday next week and have another tunneled line placed Dose medication for GFR less than 15 on dialysis. 2. Fevers Stap Aureus noted Lines to be removed NIRAJ negative MRI without abscess 3. Anemia, thrombocytopenia Continue to monitor during hospitalization, likely secondary to myeloma/chemo, will defer management to outpatient correctional probation officer 4. Chemistry Minor noncritical aberration including low sodium, acidosis noted, monitor for now I want to avoid sodium bicarb given need to avoid sodium loading 5. Hemodynamics Look pretty good Thank you for consultation Cheikh Waddell MD Nephrology [phone] Patient seen and examined via telemedicine, with the assistance of the bedside RN > 25 min spent in evaluation and mgmt of patient Status: Acute Attestations Medical Necessity Statement*: eval for ESRD Coding Level of Care Code Acute Health Technician Hearing for g Fwd Diagnoses ESRD on hemodialysis N18.6; Z99.2
[2021-06-17] MEDS: levofloxacin-dextrose 5 % 500 MG/100 ML PREMIX 100 MG IV (19:11)
--- NOTE | 2021-06-17 20:15 | PM.PN ---
Subjective Subjective: She is doing better. Denies any pain. No shortness of breath. Vitals/I&O/Wt Last Vital Signs Temp 98.1 F 06/17/21 16:00 Pulse 93 06/17/21 16:00 Resp 18 06/17/21 16:00 BP 126/66 06/17/21 16:00 Pulse Ox 94 06/17/21 16:00 06/17/21 06/17/21 06/17/21 06:59 14:59 22:59 Intake Total 960 / 960 240 / 1200 Output Total 800 / 800 1300 / 1300 650 / 1950 Balance -800 / -100 -340 / -340 -410 / -750 Weight last 48 hrs Weight 78.88 kg Weight 77.655 kg Physical Exam Const: COMMON NORMALS: patient oriented x3 NUTRITIONAL APPEARANCE: overweight ORIENTATION/CONSCIOUSNESS: Yes awake OTHER: Generally weak, gradually getting stronger compared to admission. HENMT: COMMON NORMALS: oropharynx normal Neck/C-Spine: COMMON NORMALS: no JVD Chest: OTHER: R port, L Aquino catheter Resp: COMMON NORMALS: normal respiratory effort and clear to auscultation bilaterally AUSCULTATION: clear to auscultation bilaterally Cardio: COMMON NORMALS: no JVD, regular rhythm, S1 normal heart sound present, S2 normal heart sound present and No murmurs present (Cardio) RHYTHM: regular rhythm HEART SOUNDS: S1 normal heart sound present and S2 normal heart sound present GI: COMMON NORMALS: Normal to inspection, nondistended, normoactive bowel sounds present, Soft to palpation and non-tender PALPATION: Yes Soft to palpation Extremity: COMMON NORMALS: no joint enlargement and no pedal edema Neuro: COMMON NORMALS: patient oriented x3 and moves all extremities Skin: GENERAL SKIN EXAM: dry skin and other (Diffuse dry/scaly/cracked skin, no erythema. No weeping.) OTHER: Dressing at prior site of Aquino catheter and port Urinary Catheter Management: Mckeon: Cath Placed During This Visit: yes Urethral Indwelling: Yes Reason for Continuing Indwelling Catheter: Accurate Measurement of Urinary Output in Critically Ill Patients Urinary Catheter Date of Insertion: 06/12/21 Data : 06/17/21 04:42 06/17/21 04:42 Micro: Microbiology 06/12/21 19:43 Blood Culture - Final Blood NO GROWTH AFTER 5 DAYS 06/12/21 19:40 Blood Culture - Final Blood NO GROWTH AFTER 5 DAYS 06/15/21 13:22 Gram Stain - Final Chest Abscess Culture - Preliminary Staphylococcus aureus 06/15/21 13:22 Gram Stain - Final Chest Abscess Culture - Preliminary Staphylococcus aureus A&P Assessment and plan (1) Staphylococcus aureus bacteremia: Continue line holiday. Planned dialysis Saturday or Saturday with tunneled catheter placement around that time. Continue IV antibiotics. Continue post discharge arrangements with placement to SNF for rehabilitation and IV antibiotics. With difficulties with ambulation, requiring assistance, leg pain assessed by MRI thoracic and lumbar spine, with finding of degenerative changes, without signs of epidural or paraspinal abscess on noncontrast study due to ESRD Underwent NIRAJ, no vegetation, paravalvular abscess noted. Given immunocompromised with MM and residual renal function with baseline dialysis only twice a week proceeded with removal of intravascular devices. Tip sent for culture. Of note about 1 cc abscess noted at distal access site of hemodialysis catheter, evacuated. I would suspect this may have been the site of entry for her bacteremia MSSA. Staph aureus bacteremia now 3/3 bottles. Reported drawn from periphery. Also Staph aureus bacteremia reported at outside facility, unknown source of sample Staph aureus UTI as well, multifocal pneumonia, concern for possible septic embolic disease. Continue vancomycin. Will need at least 2 weeks of IV antibiotic therapy after discharge. Status: Acute (2) Fever: So far no longer febrile. Staph aureus bacteremia. Staph aureus UTI. Pneumonia versus septic embolic disease. Urine bacterial antigens negative. MRSA negative. COVID-19 PCR was negative. Continue Levaquin, vancomycin. Status: Acute (3) UTI (urinary tract infection): Complicated UTI. No obstructive uropathy. Continue vancomycin. Status: Acute (4) Hypotension: Resolved. Decrease prednisone dose to 5 mg daily. Tapering steroids. Suspect likely adrenal insufficiency given history of multiple myeloma with chemotherapy, likely steroid use, but also recent steroids following this, the rash which she is no longer taking. Status: Acute (5) Pneumonia: Covid negative. Sputum culture. Negative bacterial antigens. Negative MRSA PCR. Multiple small nodule opacities in the lungs incidentally noted on CT abdomen pelvis. NIRAJ unremarkable. Appears unlikely embolic disease. Unclear etiology of the nodules. Will need follow-up. Levaquin, vancomycin. Status: Acute (6) ESRD on hemodialysis: TS schedule. Nephrology consult. Kendall Townsend catheter infection, removed. Line holiday. Status: Acute (7) Vascular dialysis catheter in place: Removed With noted 1 cc abscess had distal point of access, evacuated. She reports it may have been in place longer than 6 months. She is not aware of any plans for fistula or other access. Normally follows with nephrology in [place]. Staph aureus bacteremia Status: Acute (8) Port-A-Cath in place: Removed Status: Resolved (9) Desquamative dermatitis: This has been gradually resolving. Still dry scaly skin over a large portion of her body. No erythema, weeping, sign of infection currently. Status: Acute (10) Multiple myeloma: Reports she is on break from chemotherapy given discomfort of rash which she believes was temporally related to Zarxio. Normally follows with hematology in [place]. Status: Acute (11) Hypothyroidism: Status: Acute (12) Pulmonary nodules: Multiple small nodule opacities in the lungs incidentally noted on CT abdomen pelvis. NIRAJ unremarkable. Appears unlikely embolic disease. Unclear etiology of the nodules. Will need follow-up. Status: Acute Attestations Medical Necessity Statement*: Continue antibiotics for staphylococcal bacteremia, line holiday, pending additional dialysis, tunneled catheter replacement, taper off steroids. Coding Level of Care Code Acute Product Development Actuary for [facility] Fwd Diagnoses Staphylococcus aureus bacteremia R78.81; B95.61 Fever R50.9 UTI (urinary tract infection) N39.0 Hypotension I95.9 Pneumonia J18.9 ESRD on hemodialysis N18.6; Z99.2 Vascular dialysis catheter in place Z99.2 Port-A-Cath in place Z95.828 Desquamative dermatitis L30.8 Multiple myeloma C90.00 Hypothyroidism E03.9 Pulmonary nodules R91.8
[2021-06-18] VITALS (8 sets, daily range): BP systolic 123–136; BP diastolic 67–80; PULSE 91–106; RESP 15–20; TEMP 36.5–37.2; O2SAT 94–98; BMI 23.7
[2021-06-18 04:53] LABS: Basophils % 0.2 %; Eosinophils % 0.1 %; Hematocrit 25.8 % (37.0-47.0); Hemoglobin 8.2 g/dL (11.5-15.3); Lymphocytes # 0.2 10^3/uL (0.8-4.8); Lymphocytes % 1.3 %; Mean Corpuscular HGB Conc 31.8 g/dL (30.0-36.0); Mean Corpuscular Hemoglobin 32.8 pg (28.0-34.0); Mean Corpuscular Volume 103.2 fl (81-99); Mean Platelet Volume 11.1 fL (7.4-10.4); Monocytes # 0.5 10^3/uL (0.2-0.9); Monocytes % 3.5 %; Neutrophils # 13.69 10^3/uL (1.8-7.7); Neutrophils % 93.1 %; Nucleated Red Blood Cells % 0 %; Platelet Count 205 10^3/cmm (130-400); Red Cell Distribution Width 14.5 % (12.1-15.1); White Blood Count 14.7 10^3/uL (4.0-10.0)
[2021-06-18 05:05] LABS: Alanine Aminotransferase 49 U/L (0-33); Albumin Level 2.6 g/dL (3.5-5.2); Alkaline Phosphatase 137 IU/L (35-105); Anion Gap 22.6 (5-19); Aspartate Amino Transferase 17 U/L (0-32); Calcium 7.2 mg/dL (8.5-10.5); Carbon Dioxide 19 mmol/L (22-29); Chloride 94 mmol/L (98-107); Globulin 2.2 g/dL (1.3-4.6); Glomerular Filtration Rate 7.7 mL/min (90-130); Glucose 273 mg/dL (65-115); Potassium 4.6 mmol/L (3.5-5.1); Sodium 131 mmol/L (136-145); Total Bilirubin 0.3 mg/dL (0.15-1.2); Total Protein 4.8 g/dL (6.6-8.7)
[2021-06-18 05:12] LABS: Vancomycin Random 14.5 ug/mL (20.0-40.0)
[2021-06-18 05:40] LABS: Osmolality Calculated 327 mOsm/kg (285-295)
[2021-06-18 05:41] LABS: Blood Urea Nitrogen 139 mg/dL (8-23)
--- NOTE | 2021-06-18 07:29 | PM.PN ---
Subjective Subjective: Ms. Pickard is doing well with no specific complaints. No fevers or chills. Making good volume of urine. No extremity edema. No uremic symptoms. Eating and drinking well. Medications: Reviewed: Yes Vitals/I&O/Wt Last Vital Signs Temp 97.8 F 06/18/21 07:14 Pulse 102 H 06/18/21 07:14 Resp 20 H 06/18/21 07:14 BP 135/76 06/18/21 07:14 Pulse Ox 95 06/18/21 07:14 06/17/21 06/18/21 06/18/21 22:59 06:59 14:59 Intake Total 580 / 1540 Output Total 650 / 1950 2150 / 4100 Balance -70 / -410 -2150 / -2560 Weight last 48 hrs Weight 77.111 kg Weight 78.88 kg Physical Exam Narrative: Constitutional: Awake, comfortable HEENT: Wet mucosa, no jvp, non icteric Lungs: Bilaterally clear without discernible wheeze, rales in all lung zones CVS: S1 S2, no murmurs Abdo: Soft, BS ok Ext 4: Minimal edema, peripheral perfusion with no cyanosis Neurological: Grossly non-focal Urinary Catheter Management: Mckeon: Cath Placed During This Visit: yes Urethral Indwelling: Yes Reason for Continuing Indwelling Catheter: Accurate Measurement of Urinary Output in Critically Ill Patients Urinary Catheter Date of Insertion: 06/12/21 Data : 06/18/21 03:55 06/18/21 03:55 Micro: Microbiology 06/12/21 19:43 Blood Culture - Final Blood NO GROWTH AFTER 5 DAYS 06/12/21 19:40 Blood Culture - Final Blood NO GROWTH AFTER 5 DAYS 06/15/21 13:22 Gram Stain - Final Chest Abscess Culture - Preliminary Staphylococcus aureus 06/15/21 13:22 Gram Stain - Final Chest Abscess Culture - Preliminary Staphylococcus aureus A&P Assessment and plan (1) ESRD on hemodialysis: 1. ESRD Creatinine/BUN continue to slowly climb up i.e. she will need dialysis in the next few days but there is certainly no acute indication today. I will discuss with team members the ideal optimal timing for placement of permacath. Dose medication for GFR less than 15 on dialysis. 2. Fevers Stap Aureus noted Lines to be removed NIRAJ negative MRI without abscess Staph cultured from exit site abscess from permacath 3. Anemia, thrombocytopenia Continue to monitor during hospitalization, likely secondary to myeloma/chemo, will defer management to outpatient inside horticultural specialty grower 4. Chemistry Minor noncritical aberration including low sodium, acidosis noted, monitor for now I want to avoid sodium bicarb given need to avoid sodium loading 5. Hemodynamics Look pretty good Thank you for consultation Cheikh Waddell MD Nephrology [phone] Patient seen and examined via telemedicine, with the assistance of the bedside RN > 25 min spent in evaluation and mgmt of patient Status: Acute Attestations Medical Necessity Statement*: Eval for ESRD Coding Level of Care Code Acute Cnc Laser Operator for g Fwd Diagnoses ESRD on hemodialysis N18.6; Z99.2
[2021-06-18] MEDS: predniSONE 5 mg Tablet PO ×2 (08:37→18:18)
--- NOTE | 2021-06-18 11:00 | PM.PN ---
Subjective Subjective: She reports she is doing well today. Denies any complaints. No trouble breathing. No chest pain or pressure. No nausea or vomiting. Vitals/I&O/Wt Last Vital Signs Temp 97.8 F 06/18/21 07:14 Pulse 102 H 06/18/21 07:14 Resp 20 H 06/18/21 07:14 BP 135/76 06/18/21 07:14 Pulse Ox 95 06/18/21 07:14 06/17/21 06/18/21 06/18/21 22:59 06:59 14:59 Intake Total 580 / 1540 Output Total 650 / 1950 2150 / 4100 Balance -70 / -410 -2150 / -2560 Weight last 48 hrs Weight 77.111 kg Weight 78.88 kg Physical Exam Const: COMMON NORMALS: patient oriented x3 NUTRITIONAL APPEARANCE: overweight ORIENTATION/CONSCIOUSNESS: Yes awake OTHER: Generally weak, gradually getting stronger compared to admission. HENMT: COMMON NORMALS: oropharynx normal Neck/C-Spine: COMMON NORMALS: no JVD Chest: OTHER: R port, L Aquino catheter Resp: COMMON NORMALS: normal respiratory effort and clear to auscultation bilaterally AUSCULTATION: clear to auscultation bilaterally Cardio: COMMON NORMALS: no JVD, regular rhythm, S1 normal heart sound present, S2 normal heart sound present and No murmurs present (Cardio) RHYTHM: regular rhythm HEART SOUNDS: S1 normal heart sound present and S2 normal heart sound present GI: COMMON NORMALS: Normal to inspection, nondistended, normoactive bowel sounds present, Soft to palpation and non-tender PALPATION: Yes Soft to palpation Extremity: COMMON NORMALS: no joint enlargement and no pedal edema Neuro: COMMON NORMALS: patient oriented x3 and moves all extremities Skin: GENERAL SKIN EXAM: dry skin and other (Diffuse dry/scaly/cracked skin, no erythema. No weeping.) OTHER: Dressing at prior site of Aquino catheter and port Urinary Catheter Management: Mckeon: Cath Placed During This Visit: yes Urethral Indwelling: Yes Reason for Continuing Indwelling Catheter: Accurate Measurement of Urinary Output in Critically Ill Patients Urinary Catheter Date of Insertion: 06/12/21 Data : 06/18/21 03:55 06/18/21 03:55 Micro: Microbiology 06/15/21 13:22 Gram Stain - Final Chest Anaerobic Culture - Preliminary Abscess Culture - Preliminary Staphylococcus aureus 06/15/21 13:22 Gram Stain - Final Chest Anaerobic Culture - Preliminary Abscess Culture - Preliminary Staphylococcus aureus 06/12/21 19:43 Blood Culture - Final Blood NO GROWTH AFTER 5 DAYS 06/12/21 19:40 Blood Culture - Final Blood NO GROWTH AFTER 5 DAYS 06/12/21 19:30 Blood Culture - Preliminary Blood 06/12/21 19:42 Blood Culture - Final Blood Staphylococcus aureus A&P Assessment and plan (1) Staphylococcus aureus bacteremia: Continue line holiday. Anticipate dialysis Saturday or Saturday with tunneled catheter placement around that time. Continue IV antibiotics. Continue post discharge arrangements with placement to SNF for rehabilitation and complete 2 weeks of IV Vancomycin. With difficulties with ambulation, requiring assistance, leg pain assessed by MRI thoracic and lumbar spine, with finding of degenerative changes, without signs of epidural or paraspinal abscess on noncontrast study due to ESRD Underwent NIRAJ, no vegetation or paravalvular abscess noted. Given immunocompromised with MM and residual renal function with baseline dialysis only twice a week proceeded with removal of intravascular devices. Tip sent for culture -growing staph aureus from both HD catheter site and port tip. 1 cc abscess noted at distal access site of hemodialysis catheter, evacuated. Likely point of entry for the bacteremia. MSSA. Staph aureus bacteremia now 3/3 bottles. Reported drawn from periphery. Also Staph aureus bacteremia reported at outside facility, unknown source of sample Staph aureus UTI as well, multifocal pneumonia, concern for possible septic embolic disease. Continue vancomycin. Status: Acute (2) Fever: So far no longer febrile. Staph aureus bacteremia. Staph aureus UTI. Pneumonia versus septic embolic disease. Urine bacterial antigens negative. MRSA negative. COVID-19 PCR was negative. Continue Levaquin, vancomycin. Status: Acute (3) UTI (urinary tract infection): Complicated UTI. No obstructive uropathy. Continue vancomycin. Status: Acute (4) Hypotension: Resolved. Decrease prednisone dose to 5 mg daily. Tapering steroids. Suspect likely adrenal insufficiency given history of multiple myeloma with chemotherapy, likely steroid use, but also recent steroids following this, the rash which she is no longer taking. Status: Acute (5) Pneumonia: Consider de-escalate antibiotics with Levaquin tomorrow. Covid negative. Sputum culture. Negative bacterial antigens. Negative MRSA PCR. Multiple small nodule opacities in the lungs incidentally noted on CT abdomen pelvis. NIRAJ unremarkable. Appears unlikely embolic disease. Unclear etiology of the nodules. Will need follow-up. Levaquin, vancomycin. Status: Acute (6) ESRD on hemodialysis: schedule. Nephrology consult. Kendall Townsend catheter infection, removed. Line holiday. Status: Acute (7) Vascular dialysis catheter in place: Removed With noted 1 cc abscess had distal point of access, evacuated. She reports it may have been in place longer than 6 months. She is not aware of any plans for fistula or other access. Normally follows with nephrology in [place]. Staph aureus bacteremia Status: Acute (8) Port-A-Cath in place: Removed Status: Resolved (9) Desquamative dermatitis: This has been gradually resolving. Still dry scaly skin over a large portion of her body. No erythema, weeping, sign of infection currently. Status: Acute (10) Multiple myeloma: Reports she is on break from chemotherapy given discomfort of rash which she believes was temporally related to Zarxio. Normally follows with hematology in [place]. Status: Acute (11) Hypothyroidism: Status: Acute (12) Pulmonary nodules: Multiple small nodule opacities in the lungs incidentally noted on CT abdomen pelvis. NIRAJ unremarkable. Appears unlikely embolic disease. Unclear etiology of the nodules. Will need follow-up. Status: Acute Attestations Medical Necessity Statement*: Continue admission for cyst management of Staph aureus bacteremia, ESRD, line holiday pending replacement of hemodialysis access. Coding Level of Care Code Acute Health Data Analyst for [facility] Fwd Diagnoses Staphylococcus aureus bacteremia R78.81; B95.61 Fever R50.9 UTI (urinary tract infection) N39.0 Hypotension I95.9 Pneumonia J18.9 ESRD on hemodialysis N18.6; Z99.2 Vascular dialysis catheter in place Z99.2 Port-A-Cath in place Z95.828 Desquamative dermatitis L30.8 Multiple myeloma C90.00 Hypothyroidism E03.9 Pulmonary nodules R91.8
[2021-06-19] VITALS (9 sets, daily range): BP systolic 117–124; BP diastolic 71–75; PULSE 86–116; RESP 12–23; TEMP 36.4–37.2; O2SAT 94–97
[2021-06-19 04:16] LABS: Basophils % 0.2 %; Eosinophils # 0.1 10^3/uL (0.0-0.8); Eosinophils % 0.8 %; Hematocrit 27.1 % (37.0-47.0); Hemoglobin 8.8 g/dL (11.5-15.3); Lymphocytes # 0.2 10^3/uL (0.8-4.8); Lymphocytes % 1.8 %; Mean Corpuscular HGB Conc 32.5 g/dL (30.0-36.0); Mean Corpuscular Hemoglobin 32.5 pg (28.0-34.0); Mean Platelet Volume 11.1 fL (7.4-10.4); Monocytes # 0.4 10^3/uL (0.2-0.9); Monocytes % 3.4 %; Neutrophils # 11.96 10^3/uL (1.8-7.7); Neutrophils % 91.6 %; Nucleated Red Blood Cells % 0 %; Platelet Count 236 10^3/cmm (130-400); Red Blood Count 2.71 10^6/uL (4.1-5.3); Red Cell Distribution Width 14.4 % (12.1-15.1); White Blood Count 13.1 10^3/uL (4.0-10.0)
[2021-06-19 04:35] LABS: Vancomycin Random 12.7 ug/mL (20.0-40.0)
[2021-06-19 04:36] LABS: Alanine Aminotransferase 40 U/L (0-33); Albumin Level 2.6 g/dL (3.5-5.2); Alkaline Phosphatase 111 IU/L (35-105); Anion Gap 22.9 (5-19); Aspartate Amino Transferase 13 U/L (0-32); Calcium 7.3 mg/dL (8.5-10.5); Carbon Dioxide 19 mmol/L (22-29); Chloride 94 mmol/L (98-107); Globulin 2.4 g/dL (1.3-4.6); Glomerular Filtration Rate 7.9 mL/min (90-130); Glucose 131 mg/dL (65-115); Potassium 4.9 mmol/L (3.5-5.1); Sodium 131 mmol/L (136-145); Total Bilirubin 0.4 mg/dL (0.15-1.2)
[2021-06-19 04:44] LABS: Osmolality Calculated 313 mOsm/kg (285-295)
[2021-06-19 04:45] LABS: Blood Urea Nitrogen 123 mg/dL (8-23)
--- NOTE | 2021-06-19 08:12 | PC.OT ---
alannah to treatment plan: patient will be seen 5x/ week Saturday-Saturday
[2021-06-19] MEDS: ondansetron 2 mg/ML SDV 2 mL 4 MG IVP (09:23)
[2021-06-19] MEDS: predniSONE 5 mg Tablet PO ×2 (09:25→19:36)
--- NOTE | 2021-06-19 12:42 | PM.PN ---
Subjective Subjective: This morning patient was laying supine, no active complaints, Afebrile 06/12 bacteremia with staph aureus, repeat cultures negative did speak with Dr. Victor and alcoholic counselor there is plan to do permacath tomorrow Dr. Sampson has spoken to her outpatient alcoholic counselor Casie, who would like replacement of tunneled dialysis line during this hospitalization Adequate urine output No acute indication for dialysis Discontinue Levaquin Continue vancomycin, staph aureus is sensitive to ceftriaxone, Vitals/I&O/Wt Last Vital Signs Temp 98.6 F 06/19/21 12:00 Pulse 99 06/19/21 12:00 Resp 18 06/19/21 12:00 BP 123/75 06/19/21 12:00 Pulse Ox 95 06/19/21 12:00 06/18/21 06/19/21 06/19/21 22:59 06:59 14:59 Intake Total 520 / 980 360 / 1340 Output Total 1800 / 1800 2400 / 2400 Balance -1280 / -820 360 / -460 -2400 / -2400 Weight last 48 hrs Weight 77.111 kg Physical Exam Narrative: Patient laying supine No acute distress Satting well on room air About to work with physical therapy EOMI, PERRLA Nonfocal neuro exam No signs of fluid overload No signs of uremia S1, S2 No signs of peritonitis No audible stridor or wheezing Urinary Catheter Management: Mckeon: Cath Placed During This Visit: yes Urethral Indwelling: Yes Reason for Continuing Indwelling Catheter: Accurate Measurement of Urinary Output in Critically Ill Patients Urinary Catheter Date of Insertion: 06/12/21 Data : 06/19/21 03:35 06/19/21 03:35 Micro: Microbiology 06/15/21 13:22 Gram Stain - Final Chest Anaerobic Culture - Preliminary Abscess Culture - Final Staphylococcus aureus 06/15/21 13:22 Gram Stain - Final Chest Anaerobic Culture - Preliminary Abscess Culture - Final Staphylococcus aureus 06/13/21 12:11 Blood Culture - Final Blood NO GROWTH AFTER 5 DAYS 06/13/21 12:09 Blood Culture - Final Blood NO GROWTH AFTER 5 DAYS 06/12/21 19:30 Blood Culture - Final Blood Staphylococcus aureus 06/12/21 19:43 Blood Culture - Final Blood NO GROWTH AFTER 5 DAYS 06/12/21 19:40 Blood Culture - Final Blood NO GROWTH AFTER 5 DAYS 06/12/21 19:42 Blood Culture - Final Blood Staphylococcus aureus A&P Assessment and plan (1) Staphylococcus aureus bacteremia: Status: Acute (2) Pulmonary nodules: Status: Acute (3) Positive blood culture: Status: Acute Plan Staph aureus bacteremia status post removal tunneled catheter and Mediport Plan for replacement of tunneled catheter on 06/[address] Victor Likely will be discharged on 06/21 MRI thoracic and lumbar region showed degenerative changes no active signs of spinal cord compression or epidural abscess Repeat blood cultures negative to date MSSA I would choose ceftriaxone 2 g daily for next 4 weeks, she has received MRSA coverage for 1 week in the hospital UTI: Resolved Hypertension: Resolved Continue prednisone 5 mg daily Pneumonia: Ruled out Discontinue Levaquin Pulmonary nodules could be reactive in nature versus eosinophilic pneumonia Improving with steroids Entry renal disease TS schedule Desquamative dermatitis No acute exacerbation outpatient dermatology follow-up Multiple myeloma hematology in [place] Discharge on 06/21 N.p.o. after midnight Full code Attestations Medical Necessity Statement*: Continue hospitalization Time Spent in Patient Care: 30min Coding Level of Care Code Acute Investigator Internal Affairs for [facility] Fwd Diagnoses Staphylococcus aureus bacteremia R78.81; B95.61 Pulmonary nodules R91.8 Positive blood culture R78.81
[2021-06-19] MEDS: vancomycin 750 MG in sodium chloride 0.9% 250 ML 250 MG IV (14:43)
--- NOTE | 2021-06-19 15:48 | PM.PN ---
Subjective Subjective: Cierra feels okay today. No acute symptoms. She describes no uremic symptoms. No fevers or chills. She does remain just a little bit weak. Medications: Reviewed: Yes Vitals/I&O/Wt Last Vital Signs Temp 98.1 F 06/19/21 15:45 Pulse 116 H 06/19/21 15:45 Resp 18 06/19/21 15:45 BP 123/74 06/19/21 15:45 Pulse Ox 94 06/19/21 15:45 06/19/21 06/19/21 06/19/21 06:59 14:59 22:59 Intake Total 360 / 1340 Output Total 2400 / 2400 Balance 360 / -460 -2400 / -2400 Weight last 48 hrs Weight 77.111 kg Physical Exam Narrative: Constitutional: Awake, comfortable HEENT: Wet mucosa, no jvp, non icteric Lungs: Bilaterally clear without discernible wheeze, rales in all lung zones CVS: S1 S2, no murmurs Abdo: Soft, BS ok Ext 4: Minimal edema, peripheral perfusion with no cyanosis Neurological: Grossly non-focal Urinary Catheter Management: Mckeon: Cath Placed During This Visit: yes Urethral Indwelling: Yes Reason for Continuing Indwelling Catheter: Accurate Measurement of Urinary Output in Critically Ill Patients Urinary Catheter Date of Insertion: 06/12/21 Data : 06/19/21 03:35 06/19/21 03:35 Micro: Microbiology 06/15/21 13:22 Gram Stain - Final Chest Anaerobic Culture - Preliminary Abscess Culture - Final Staphylococcus aureus 06/15/21 13:22 Gram Stain - Final Chest Anaerobic Culture - Preliminary Abscess Culture - Final Staphylococcus aureus 06/13/21 12:11 Blood Culture - Final Blood NO GROWTH AFTER 5 DAYS 06/13/21 12:09 Blood Culture - Final Blood NO GROWTH AFTER 5 DAYS 06/12/21 19:30 Blood Culture - Final Blood Staphylococcus aureus A&P Assessment and plan (1) ESRD on hemodialysis: 1. ESRD Creatinine remained stable and she has no acute indication for dialysis. I did discuss her care with her outpatient television news reporter, Dr Jason. He wishes for a permacath replaced during this hospitalization and to continue dialysis following discharge. Dose medication for GFR less than 15 on dialysis. 2. Fevers MSSA noted Lines to be removed NIRAJ negative MRI without abscess Staph cultured from exit site abscess from permacath Cont abx in the outpatient facility 3. Anemia, thrombocytopenia Continue to monitor during hospitalization, likely secondary to myeloma/chemo, will defer management to outpatient refractory bricklayer 4. Chemistry Minor noncritical aberration including low sodium, acidosis noted, monitor for now I want to avoid sodium bicarb given need to avoid sodium loading 5. Hemodynamics Look pretty good Thank you for consultation Cheikh Waddell MD Nephrology [phone] Patient seen and examined via telemedicine, with the assistance of the bedside RN > 25 min spent in evaluation and mgmt of patient Status: Acute Attestations Medical Necessity Statement*: Eval for ESRD Coding Level of Care Code Acute Lathe Tender for [facility] Fwd Diagnoses ESRD on hemodialysis N18.6; Z99.2
--- NOTE | 2021-06-19 17:30 | P.PN_ITS ---
Subjective Subjective: Patient overall feels better Medications: Reviewed: Yes Vitals/I&O/Wt Last Vital Signs Temp 98.1 F 06/19/21 15:45 Pulse 116 H 06/19/21 15:45 Resp 18 06/19/21 15:45 BP 123/74 06/19/21 15:45 Pulse Ox 94 06/19/21 15:45 06/19/21 06/19/21 06/19/21 06:59 14:59 22:59 Intake Total 360 / 1340 240 / 240 Output Total 2400 / 2400 Balance 360 / -460 -2160 / -2160 Weight last 48 hrs Weight 170 lb Physical Exam Narrative: Patient is conscious alert oriented X3 No apparent distress BMI 24 Left upper chest wound is clean dry and no evidence of purulent discharge or cellulitisand dressing in place. Right upper chest dressing was taken down and Steri-Strips in place and incision looks to be intact Urinary Catheter Management: Mckeon: Cath Placed During This Visit: yes Urethral Indwelling: Yes Reason for Continuing Indwelling Catheter: Accurate Measurement of Urinary Output in Critically Ill Patients Urinary Catheter Date of Insertion: 06/12/21 Data : 06/19/21 03:35 06/19/21 03:35 Micro: Microbiology 06/15/21 13:22 Gram Stain - Final Chest Anaerobic Culture - Preliminary Abscess Culture - Final Staphylococcus aureus 06/15/21 13:22 Gram Stain - Final Chest Anaerobic Culture - Preliminary Abscess Culture - Final Staphylococcus aureus 06/13/21 12:11 Blood Culture - Final Blood NO GROWTH AFTER 5 DAYS 06/13/21 12:09 Blood Culture - Final Blood NO GROWTH AFTER 5 DAYS 06/12/21 19:30 Blood Culture - Final Blood Staphylococcus aureus A&P Assessment and plan (1) ESRD on hemodialysis: To my understanding patient will be receiving a tunneled hemodialysis catheter before she leaves the hospital yet there was some different standpoint of view about the actual need for dialysis as a longer term versus conservative measures. Patient seems to be confused with the plan of care and she would like to clarify the matter more. From my and I will make myself available for what is best for the patient We will continue coordinating care with hospitalist and nephrology services Patient is scheduled for tomorrow tentatively for a tunneled hemodialysis catheter unless otherwise decided Assurance and education All questions have been answered and all concerns have been addressed to patient's satisfaction. Status: Acute Attestations Medical Necessity Statement*: Per admitting service Coding Level of Care Code Acute Icer Air Conditioning for g Fwd Diagnoses ESRD on hemodialysis N18.6; Z99.2
[2021-06-19] MEDS: cefTRIAXone 2,000 MG in sodium chloride 0.9% (plus) 50 ML 100 MG IV (21:08)
[2021-06-20] VITALS (20 sets, daily range): BP systolic 94–142; BP diastolic 62–82; PULSE 84–121; RESP 16–18; TEMP 36.1–36.8; O2SAT 94–98
--- NOTE | 2021-06-20 | SCC_ITS ---
Procedure done: 1. Placement of 16 Turk[place] 27 cm long AshSplit tunneled hemodialysis catheter right internal jugular vein 2. Fluoroscopic guidance and interpretation for placement of catheter 3. Ultrasound guidance to access the right internal jugular vein 4. Cutdown on right internal jugular vein 5. Repair of right internal jugular vein using 6-0 Prolene 59.9 seconds of fluoroscopic guidance, for a cumulative dose of 6.79 mGy, was provided to Dr. Myers by the radiology department. C-arm images of the chest were saved for the patient's permanent record. [facility]
[2021-06-20 03:26] LABS: Basophils % 0.2 %; Eosinophils # 0.2 10^3/uL (0.0-0.8); Eosinophils % 1.4 %; Hematocrit 25.9 % (37.0-47.0); Hemoglobin 8.4 g/dL (11.5-15.3); Lymphocytes # 0.2 10^3/uL (0.8-4.8); Lymphocytes % 1.7 %; Mean Corpuscular HGB Conc 32.4 g/dL (30.0-36.0); Mean Corpuscular Hemoglobin 32.3 pg (28.0-34.0); Mean Corpuscular Volume 99.6 fl (81-99); Mean Platelet Volume 11.2 fL (7.4-10.4); Monocytes # 0.5 10^3/uL (0.2-0.9); Monocytes % 4.5 %; Neutrophils # 10.54 10^3/uL (1.8-7.7); Neutrophils % 90.5 %; Nucleated Red Blood Cells % 0 %; Platelet Count 246 10^3/cmm (130-400); White Blood Count 11.6 10^3/uL (4.0-10.0)
[2021-06-20 03:49] LABS: Anion Gap 22.8 (5-19); Carbon Dioxide 20 mmol/L (22-29); Chloride 94 mmol/L (98-107); Glomerular Filtration Rate 8.1 mL/min (90-130); Glucose 143 mg/dL (65-115); Osmolality Calculated 311 mOsm/kg (285-295); Potassium 4.8 mmol/L (3.5-5.1); Procalcitonin 3.56 ng/mL (0-0.5); Sodium 132 mmol/L (136-145)
[2021-06-20 03:50] LABS: Vancomycin Random 22.6 ug/mL (20.0-40.0)
[2021-06-20 03:52] LABS: Blood Urea Nitrogen 110 mg/dL (8-23)
[2021-06-20] MEDS: predniSONE 5 mg Tablet PO (08:11)
--- NOTE | 2021-06-20 09:49 | PC.CHAP ---
Pastoral Care Encounter/Spiritual Assessment Type of Contact [] Declined retail account representative visit [] Patient/Family/Request visit [] Outpatient visit [] Follow-up visit [] Physician referral [] Code/Alert [x] Routine visit [] Staff referral [] Actively dying [] Patient sleeping [] Family support [] [] Out of room [] Palliative care [] [] Receiving care in room [] Pre-surgical visit [] Trauma [] Long length of stay [] ICU visit [] Other: Relational/Emotional Strength [x] Patient feels connected with others/family/visitors/staff [] Distress [] Loneliness/isolation [] Abandonment Spirituality of Patient [x] Person of Jaclyn [] Attends Advent of their Jaclyn [] Believes in Prayer [] Reads Bible or Tenriism materials [] There are Spiritual issues to be addressed Geographic Information Systems Manager Interventions [x] Prayer [x] Active listening [x] Non-anxious presence [x] Spiritual/emotional support [] Crisis/trauma care [] Spiritual counseling [] Bereavement support [] Provided bereavement packet [] Provided Bible/devotional materials [] Provided toy/stuffed animal, coloring book to patient or family member [] Provided Communion [] Anointing/[place] [] Salvation [x] Completed spiritual assessment [] Other: Impact on Illness or Injury [] Angry [] Fearful [] Anxious [] Often cries [] Exhaustion [] Unable to work [] Unable to attend mu-ism [] Unable to walk/stand [] Unable to read [] Unable to drive [] Unable to eat/drink [] Unable to sleep [] Unable to be with family [] Patient intubated [] Other: Summary Geographic Information Systems Manager saw Pt last week. Pt reports she now has an out date and believes she will be released tomorrow. She had a bouquet of rios which had been sent to her during her hospital stay. Time spent with patient 5m
--- NOTE | 2021-06-20 10:40 | SUR.PREOP ---
TIME OUT FOR PICC LINE INSERTION.
--- NOTE | 2021-06-20 11:04 | PC.OT ---
Patient refused to participate am
--- NOTE | 2021-06-20 11:34 | P.PN_ITS ---
Subjective Subjective: This morning I have spoken with patient, Dr. Jason, Dr. Sampson and Dr. Victor There is a definite plan to go for permacath placement, Outpatient furnishings conservator is not feeling comfortable keeping her dialysis free for next 1 week considering GFR of 8 Patient is scheduled to get permacath Antibiotic schedule cefazolin 2 g Saturday after dialysis, on Saturday 3 g finish antibiotic regimen 06/28 No need of PICC line placement to avoid venous stenosis for possible AV fistula indication in the future I did check with outpatient furnishings conservator, he can administer IV antibiotics via permacath Nurse, rn field case manager updated Vitals/I&O/Wt Last Vital Signs Temp 98.1 F 06/20/21 07:10 Pulse 98 06/20/21 07:10 Resp 18 06/20/21 07:10 BP 118/66 06/20/21 07:10 Pulse Ox 96 06/20/21 07:10 06/19/21 06/20/21 06/20/21 22:59 06:59 14:59 Intake Total 660 / 900 Output Total 1000 / 3400 1600 / 5000 Balance -340 / -2500 -1600 / -4100 Weight last 48 hrs Weight 71.441 kg Physical Exam Narrative: Patient was staying supine Adequate urine output Preserved fluid overloaded Discoloration of skin Awake and alert Doing well on room air No signs of fluid overload S1, S2 Blood pressure stable Abdomen soft No leg edema Urinary Catheter Management: Mckeon: Cath Placed During This Visit: yes Urethral Indwelling: Yes Reason for Continuing Indwelling Catheter: Accurate Measurement of Urinary Output in Critically Ill Patients Urinary Catheter Date of Insertion: 06/12/21 Data : 06/20/21 02:23 06/20/21 02:23 Micro: Microbiology 06/15/21 13:22 Gram Stain - Final Chest Anaerobic Culture - Preliminary Abscess Culture - Final Staphylococcus aureus 06/15/21 13:22 Gram Stain - Final Chest Anaerobic Culture - Preliminary Abscess Culture - Final Staphylococcus aureus A&P Assessment and plan (1) Staphylococcus aureus bacteremia: Status: Acute (2) Pulmonary nodules: Status: Acute (3) Positive blood culture: Status: Acute (4) Pneumonia: Status: Acute (5) UTI (urinary tract infection): Status: Acute (6) Vascular dialysis catheter in place: Status: Acute (7) Port-A-Cath in place: Status: Resolved (8) Desquamative dermatitis: Status: Acute (9) Hypotension: Status: Acute (10) ESRD on hemodialysis: Status: Acute (11) Hypothyroidism: Status: Acute (12) Multiple myeloma: Status: Acute Plan MSSA bacteremia status post Port-A-Cath and tunnel catheter removal There is plan for permacath placement today 06/20 Blood cultures negative since 06/13 plan to finish cefazolin MSSA regime on 06/28 Cefazolin 2 g Saturday, 3 g Saturday Spoken with outpatient furnishings conservator They can administer IV antibiotics via permacath Avoid PICC line placement No acute indication for dialysis Adequate urine output Her GFR is 8 and outpatient nephrology is concerned that she likely will get worse, however if dialysis not indicated he will get tunnel catheter removed in near future Hemoglobin stable Blood pressure stable as well, [facility] placement UTI: Resolved Renal diet after the procedure Full code Attestations Medical Necessity Statement*: Discharge tomorrow Time Spent in Patient Care: 35mins Coding Level of Care Code Acute Marketing Graphics Specialist for [facility] Fwd Diagnoses Staphylococcus aureus bacteremia R78.81; B95.61 Pulmonary nodules R91.8 Positive blood culture R78.81 Pneumonia J18.9 UTI (urinary tract infection) N39.0 Vascular dialysis catheter in place Z99.2 Port-A-Cath in place Z95.828 Desquamative dermatitis L30.8 Hypotension I95.9 ESRD on hemodialysis N18.6; Z99.2 Hypothyroidism E03.9 Multiple myeloma C90.00
--- NOTE | 2021-06-20 11:37 | SC_ITS ---
WS: [id number] C-arm fluoroscopy for dialysis catheter placement, 06/20/2021 Clinical Data: Removal of Port-A-Cath and hemodialysis catheter Comparison: None. Findings: Dr. Victor placed a right dialysis catheter. SC/C-arm [place] for CVA [id number] Impression: Insertion of a right dialysis catheter.
[2021-06-20] MEDS: sodium chloride 0.9% 1,000 ML 30 ML IV (11:51)
--- NOTE | 2021-06-20 13:57 | PM.PN ---
Subjective Subjective: Patient feels about the same Medications: Reviewed: Yes Vitals/I&O/Wt Last Vital Signs Temp 98.1 F 06/20/21 11:38 Pulse 104 H 06/20/21 11:38 Resp 18 06/20/21 11:38 BP 119/78 06/20/21 11:38 Pulse Ox 95 06/20/21 11:38 06/19/21 06/20/21 06/20/21 22:59 06:59 14:59 Intake Total 660 / 900 Output Total 1000 / 3400 1600 / 5000 1500 / 1500 Balance -340 / -2500 -1600 / -4100 -1500 / -1500 Weight last 48 hrs Weight 157 lb 8 oz Physical Exam Narrative: Patient is conscious alert oriented X3 No apparent distress BMI 24 Stable examination Urinary Catheter Management: Mckeon: Cath Placed During This Visit: yes Urethral Indwelling: Yes Reason for Continuing Indwelling Catheter: Accurate Measurement of Urinary Output in Critically Ill Patients Urinary Catheter Date of Insertion: 06/12/21 Data : 06/20/21 02:23 06/20/21 02:23 Micro: Microbiology 06/15/21 13:22 Gram Stain - Final Chest Anaerobic Culture - Preliminary Abscess Culture - Final Staphylococcus aureus 06/15/21 13:22 Gram Stain - Final Chest Anaerobic Culture - Preliminary Abscess Culture - Final Staphylococcus aureus A&P Assessment and plan (1) ESRD on hemodialysis: Plan of care; After thorough history physical examination and reviewing the chart and reviweing the images with my personal intrepretation.I counseled the patient for tunneled hemodialysis catheter placement, indications, risks including possibility of , stroke, heart attack, major bleeding, infection, pneumonia, organ failure, failure to benefit, prolonged hospital stay, pain after the procedure pneumothorax that may require Chest tube(s) placement and potential injury of major vascular structures that may require Thoractomy, benefits,indications and alternatives were all discussed with the patient, patient understands and is interested to proceed. Rationale was carefully and clearly discussed with the patient.Appropriate informed consent have been reviewed and signed. Also I did mention to the patient that she is at a higher risk of infection given the fact that she is recently had staphylococcal bacteremia and I&D of her left upper chest abscess Status: Acute Attestations Medical Necessity Statement*: Per admitting service Coding Level of Care Code Acute Graphic Design Assistant for [facility] Fwd Diagnoses ESRD on hemodialysis N18.6; Z99.2
[2021-06-20] MEDS: lidocaine 2% INJ 20 mL INJECTION (14:51)
--- NOTE | 2021-06-20 15:29 | ANES.PREANE2 ---
Pre-Anesthetic Assessment Height/Weight: Height 1.8 m Weight 71.441 kg Temp Pulse Resp BP Pulse Ox 98.1 F 104 H 18 119/78 95 06/20/21 11:38 06/20/21 11:38 06/20/21 11:38 06/20/21 11:38 06/20/21 11:38 Preop Diagnosis: Bacteremia induced by intravascular devices Operation Date: 06/15/21 08:00 Proposed Procedures p NIRAJ(Not Applicable) - Rajni Mooney MD Operation Date: 06/15/21 11:30 Proposed Procedures p Portacath Removal(Not Applicable) - Dwayne Victor MD s Dialysis Catheter Removal Hemodialysis Catheter Removal(Not Applicable) - Dwayne Victor MD Operation Date: 06/20/21 12:40 Proposed Procedures p Tunnelled Dialysis Catheter Insertion(Not Applicable) - Dwayne Victor MD Familial anesthetic complications: None Was Beta Temi taken within 24 hours: N/A Was Clonidine taken within 24 hours: N/A Last intake: Intake Last Liquid Date 06/20/21 Last Solid Date 06/19/21 Social No alcohol and No tobacco Exam alert, oriented x 3, clear to auscultation bilaterally and regular rate & rhythm Airway Submandibular: within normal limits Cervical ROM: within normal limits Mallampati: Class II Dentition: chipped CV/HEM Multiple myeloma Chronic Renal Failure Metabolic Morbid Obesity and Thyroid Disease Anesthetic Plan ASA status: 3 Anesthesia: MAC Risk of > 500 ml blood loss (7ml/kg in children): No Medications/Allergies Home Medications Medication Instructions Recorded Confirmed Last Taken Type acyclovir 200 mg capsule 200 mg PO BID 06/13/21 06/13/21 Unknown History clobetasol 0.05 % topical ointment 1 applic TOPICAL DAILY 06/13/21 06/13/21 Unknown History famotidine 20 mg tablet See Rx Instructions .ROUTE .COMPLEX 06/13/21 06/13/21 Unknown History hydroxyzine HCl 25 mg tablet 25 mg PO QID 06/13/21 06/13/21 Unknown History levothyroxine 50 mcg tablet 50 mcg PO DAILY 06/13/21 06/13/21 Unknown History lidocaine HCl 2.5 % topical 1 ea TOPICAL DAILY PRN 06/13/21 06/13/21 Unknown History ointment simvastatin 20 mg tablet 20 mg PO DAILY 06/13/21 06/13/21 Unknown History Allergies Allergy/AdvReac Type Severity Reaction Status Date / Time [id number] [From Surya] Allergy Severe ALGY-Rash Verified 06/14/21 18:11 Current Medications Generic Name Dose Route Start Last Admin Trade Name Freq PRN Reason Stop Dose Admin Ceftriaxone Sodium 2,000 mg/ 50 mls @ 100 mls/hr 06/19/21 14:00 06/19/21 21:52 Sodium Chloride IV Infused Q24H DESIREE Infusion Protocol Sodium Chloride 1,000 mls @ 30 mls/hr 06/20/21 11:45 06/20/21 11:51 Sodium Chloride 0.9% IV 06/21/21 11:44 30 mls/hr .Q24H DESIREE Administration Midodrine 5 mg 06/13/21 14:57 06/13/21 22:37 Midodrine 5 Mg Tablet PO 5 mg TID PRN Administration HYPOTENSION Ondansetron HCl 4 mg 06/12/21 18:39 06/19/21 09:23 Ondansetron 2 Mg/Ml Sdv 2 Ml IVP 4 mg Q8H PRN Administration vomiting, or N/V if npo Prednisone 5 mg 06/18/21 09:00 06/20/21 08:11 Prednisone 5 Mg Tablet PO 5 mg BID DESIREE Administration PFSH Anesthesia Medical History Desquamative dermatitis ESRD on hemodialysis HLD (hyperlipidemia) Hypothyroidism Multiple myeloma Nephropathy Surgical History (Updated 06/16/21 @ 16:33 by Dwayne Victor MD) Port-A-Cath in place Vascular dialysis catheter in place Family History Other Cancer Social History Smoking and tobacco status: never smoked Alcohol intake: never Substance/Drug Use: never Lives independently: Yes Household members: none Marital status: Current occupational status: disabled Data Anesthesia : 06/20/21 02:23 06/20/21 02:23 Short CBC 06/19/21 06/20/21 Range/Units 03:35 02:23 WBC 13.1 H 11.6 H (4.0-10.0) 10^3/uL Hgb 8.8 L 8.4 L (11.5-15.3) g/dL Hct 27.1 L 25.9 L (37.0-47.0) % MCV 100.0 H 99.6 H (81-99) fl Plt Count 236 246 (130-400) 10^3/cmm Neut % (Auto) 91.6 90.5 % Neut # (Auto) 11.96 H 10.54 H (1.8-7.7) 10^3/uL BMP 06/19/21 06/20/21 03:35 02:23 Sodium 131 L 132 L Potassium 4.9 4.8 Chloride 94 L 94 L Carbon Dioxide 19 L 20 L BUN 123 H* 110 H* Creatinine 5.5 H 5.4 H Glucose 131 H 143 H Calcium 7.3 L 8.0 L Liver Function 06/19/21 Range/Units 03:35 Total Bilirubin 0.4 (0.15-1.2) mg/dL AST 13 (0-32) U/L ALT 40 H (0-33) U/L Alkaline Phosphatase 111 H (35-105) IU/L Albumin 2.6 L (3.5-5.2) g/dL Microbiology 06/15/21 13:22 Gram Stain - Final Chest Anaerobic Culture - Preliminary Abscess Culture - Final Staphylococcus aureus 06/15/21 13:22 Gram Stain - Final Chest Anaerobic Culture - Preliminary Abscess Culture - Final Staphylococcus aureus Cardiac Studies: Transesophageal Echocardiogram 06/15/21
[2021-06-20] MEDS: ceFAZolin 1,000 mg SDV 2000 MG IVP (16:27)
[2021-06-20] MEDS: heparin, porcine 1,000 unit/mL INJ 10 mL 6000 UNIT INJECTION (16:30)
--- NOTE | 2021-06-20 16:48 | P.OP_ITS ---
Operative Report Date of procedure: June 20, 2021 Pre-op diagnosis: Preop Diagnosis end-stage renal Preop Diagnosis Post-op diagnosis: The same Post-op findings: Malfunction of tunneled HD after insertion and a cutdown the right IJ was done Procedure done: 1. Placement of 16 [place] 27 cm long AshSplit tunneled hemodialysis catheter right internal jugular vein 2. Fluoroscopic guidance and interpretation for placement of catheter 3. Ultrasound guidance to access the right internal jugular vein 4. Cutdown on right internal jugular vein 5. Repair of right internal jugular vein using 6-0 Prolene Surgeon: Dwayne Victor MD Systems Operator: Surgical techyimi Murphy Estimated blood loss (mL): 200 IV fluids (mL): 1,000 Complications: Cutdown on right internal jugular vein due to intraoperative bleeding Procedure: Patient was identified in the PACU and taken to the operative room and placed in supine position,both arms were tucked,Time-out was done verifying the patient's name/date of /planned procedure and destination after the procedure, all were in agreement.SCDs confirmed to be functioning, patient was already on therapeutic antibiotics administered per protocol, and beta bolivar protocol was confirmed, appropriate positioning of the patient was done by nd. IV propofol was infused by the anesthesia provider. Medications were reviewed to assess for anticoagulant usage. Risks and benefits and prevention of central line associated blood stream infection (CLABSI) were discussed with the patient/CPOA, and a consent was obtained. Monitors were in place and monitored throughout the procedure. All necessary supplies were available prior to start. Hand hygiene was completed prior to starting. Maximum barrier technique was utilized including a sterile gown, sterile gloves with a hat and mask. Site was was prepped with [chlorhexidine] and a full body drape was placed. 5 mL of 2% lidocaine was injected into the skin with a 25 gauge needle. Prep& drape was done under the usual sterile technique of upper chest right and left as well as the neck both sides, lidocaine 2% was injected at the site of the stick, started by right internal jugular vein under ultrasound guidance there was no evidence of intraluminal thrombosis that retrieved venous blood was obtained after couple of sticks, a guidewire was then threaded and under the guidance of fluoroscopy position was confirmed to be in the IVC, there was no PVC changes, at that point the guidewire was secured to the drapes with a hemostat and the needle was taken out, attention was then deviated towards creation of an insert for the HD catheter at the right upper chest, were lidocaine 2% was injected using an 15 blade knife skin incision was created dissection using a hemostat to create an entrance and for the HD catheter to be inserted were it was connected to a tunneler, and the tunneler was used to accommodate the catheter of the HD catheter to be delivered through the incision first created at the site of the stick, a small [place] was created with 11 blade knife to allow delivery of the catheter with the tunneler at that point under fluoroscopy,serial dilators were done that come in the in the KIT, followed by that a dilator with the sheath introduced onto the guidewire ,the dilator and the wire were retrieved and the catheter of the port was introduced via the sheath where it was peeled off and the catheter maintained,yet I was not able to retrieve any blood. The whole procedure was done under fluoroscopy , the position maintained to be in the rt atrium that was confirmed with fluoroscopy there was no obvious kinks and the fluoroscopy interpretation was done by me throughout the entire procedure. At this point since there was no blood able to be withdrawn after different manipulating the catheter and adjustment using different guidewires I had to extend the incision at the catheter to detect the insertion site of the right IJ and at that point there was bleeding that I had to extend the incision further and had proximal and distal control using vascular clamps and the catheter was taken out. Another kit was used and a new catheter was inserted after using a new dilator the sheath. Given the catheter was located in the good position and flushes were used and was able to retrieve blood without difficulty, Prolene suture 6/0 Prolenewere used to approximate the edges of residual distal opening of the right internal jugular vein. The catheter maintained to be in good position and fluoroscopy guided was obtained and interpreted by me through the whole entire procedure. Irrigation was done and there was appropriate hemostasis and pieces of Surgicel were applied to the base of the wound followed by approximation using 2-0 Vicryl then skin ildefonso.3/0 nylon was used to secure the hemodialysis catheter onto the anterior chest wall Patient tolerated the procedure well was taken to the recovery area Count was correct at the end of the procedure I was present for the whole entire procedure. Position of the catheter was checked with a postoperative chest x-ray and it was in good position without evidence of pneumothorax
--- NOTE | 2021-06-20 16:49 | XRR_ITS ---
PROCEDURE INFORMATION: Exam: XR Chest Exam date and time: 06/20/2021 4:49 PM Age: 61 years old Clinical indication: Device placement; Other: Tunneled dialysis catheter; Prior surgery; Surgery date: Post-operative (0-2 days); Additional info: Post op right tunneled dialysis catheter TECHNIQUE: Imaging protocol: XR of the chest. Views: 1 view. COMPARISON: MR thoracic spin wo con* [id number] 06/16/2021 9:03 AM FINDINGS: Tubes, catheters and devices: A dialysis catheter is present with tip projecting in the SVC in satisfactory position. Lungs: Unremarkable. No consolidation. Pleural spaces: Unremarkable. No pleural effusion. No pneumothorax. Heart/Mediastinum: Unremarkable. No cardiomegaly. Bones/joints: Unremarkable. XR/XR chest 1V portable [id number] IMPRESSION: 1. Satisfactory dialysis catheter position. 2. No acute cardiopulmonary abnormality.
--- NOTE | 2021-06-20 17:10 | ANE.PACU2 ---
Inpatient post-anesthesia follow up: Airway intact: Yes Vital signs: Temperature 98.1 F Pulse Rate 104 Respiratory Rate 18 Blood Pressure 119/78 Pulse Oximetry 95 Oxygen Delivery Me thod Room Air Oxygen Flow Rate 3 Fraction of Inspir ed Oxygen Hydration adequate: Yes Nausea and vomiting: No Pain level: 3 Mental status: Baseline Additional Comments: Some intraop blood loss checking H/H, type and screen, stable
[2021-06-20 17:42] LABS: Hematocrit 20.7 % (37.0-47.0); Hemoglobin 6.4 g/dL (11.5-15.3)
--- NOTE | 2021-06-20 19:30 | PC.NURSE ---
i reported high pulse 106 to nurse
[2021-06-20] MEDS: ondansetron 2 mg/ML SDV 2 mL 4 MG IVP (19:47)
[2021-06-20] MEDS: oxyCODONE 5 mg IR Tab/Cap PO (20:16)
[2021-06-20] MEDS: sodium chloride 0.9% (100 ml) 100 ML (21:51)
[2021-06-21] VITALS (15 sets, daily range): BP systolic 108–166; BP diastolic 66–82; PULSE 87–108; RESP 16–18; TEMP 36.2–37; O2SAT 95–97
[2021-06-21] MEDS: oxyCODONE 5 mg IR Tab/Cap PO (02:06)
[2021-06-21] MEDS: ondansetron 2 mg/ML SDV 2 mL 4 MG IVP ×2 (03:08→10:14)
[2021-06-21 05:43] LABS: Basophils % 0.3 %; Eosinophils # 0.1 10^3/uL (0.0-0.8); Eosinophils % 0.7 %; Hematocrit 30.2 % (37.0-47.0); Hemoglobin 9.7 g/dL (11.5-15.3); Lymphocytes # 0.2 10^3/uL (0.8-4.8); Lymphocytes % 1.4 %; Mean Corpuscular HGB Conc 32.1 g/dL (30.0-36.0); Mean Corpuscular Hemoglobin 29.2 pg (28.0-34.0); Mean Platelet Volume 10.6 fL (7.4-10.4); Monocytes # 0.6 10^3/uL (0.2-0.9); Monocytes % 3.8 %; Neutrophils # 14.84 10^3/uL (1.8-7.7); Neutrophils % 92.6 %; Nucleated Red Blood Cells % 0 %; Platelet Count 203 10^3/cmm (130-400); Red Blood Count 3.32 10^6/uL (4.1-5.3)
--- NOTE | 2021-06-21 06:00 | XRR_ITS ---
PROCEDURE INFORMATION: Exam: XR Chest Exam date and time: 06/21/2021 6:00 AM Age: 61 years old Clinical indication: Device placement; Other: Port; Prior surgery; Surgery date: Post-operative (0-2 days); Patient HX: HX of multiple myeloma; Additional info: Hematoma, neck pain TECHNIQUE: Imaging protocol: XR of the chest. Views: 1 view. COMPARISON: CR XR chest 1V portable [id number] 06/20/2021 5:04 PM FINDINGS: Tubes, catheters and devices: A dialysis catheter is present with the tip projecting in the SVC. Lungs: Unremarkable. No consolidation. Pleural spaces: Unremarkable. No pleural effusion. No pneumothorax. Heart/Mediastinum: Unremarkable. No cardiomegaly. Bones/joints: Unremarkable. XR/XR chest 1V portable [id number] IMPRESSION: No significant cardiopulmonary abnormality.
[2021-06-21 06:01] LABS: Anion Gap 21.8 (5-19); Calcium 8.5 mg/dL (8.5-10.5); Carbon Dioxide 17 mmol/L (22-29); Chloride 101 mmol/L (98-107); Glomerular Filtration Rate 8.4 mL/min (90-130); Glucose 121 mg/dL (65-115); Osmolality Calculated 315 mOsm/kg (285-295); Potassium 4.8 mmol/L (3.5-5.1); Sodium 135 mmol/L (136-145)
[2021-06-21 06:09] LABS: Blood Urea Nitrogen 108 mg/dL (8-23)
--- NOTE | 2021-06-21 07:16 | P.PN_ITS ---
Subjective Subjective: Patient overall seems to be feeling well, she does complain of some soreness towards the right side of the neck which is expected. Received 2 units of packed RBCs per hospitalist service. Today's hemoglobin 9.7 from 6.4. Patient reports to me that there was an attempt to place a PICC line but there was a technical difficulty earlier yesterday before her HD catheter placed. Medications: Reviewed: Yes Vitals/I&O/Wt Last Vital Signs Temp 97.4 F L 06/21/21 04:30 Pulse 96 06/21/21 04:30 Resp 16 06/21/21 04:30 BP 122/78 06/21/21 04:30 Pulse Ox 96 06/21/21 04:30 06/20/21 06/21/21 06/21/21 22:59 06:59 14:59 Intake Total 1800 / 1800 356 / 2156 Output Total 1200 / 2700 1000 / 3700 Balance 600 / -900 -644 / -1544 Weight last 48 hrs Weight 162 lb 8 oz Weight 157 lb 8 oz Physical Exam Narrative: Patient is conscious alert oriented X3 No apparent distress BMI 22.7 Head and neck examination PERRLA no masses no cervical lymphadenopathy no jaundice Mild swelling at the right sided neck incision and skin ildefonso in place, no evidence of surgical site infection and right upper chest HD catheter in place without complications. Left upper chest wound is stable and no evidence of pus. Cardiac examination audible S1-S2 no murmurs no gallops no arrhythmias Chest is clear bilateral,abscence of Rhonchi or wheezes,no surgical emphysema Extremities no cyanosis no clubbing no edema Urinary Catheter Management: Mckeon: Cath Placed During This Visit: yes Urethral Indwelling: Yes Reason for Continuing Indwelling Catheter: Accurate Measurement of Urinary Output in Critically Ill Patients Urinary Catheter Date of Insertion: 06/12/21 Data : 06/21/21 05:34 06/21/21 05:34 Micro: Microbiology 06/15/21 13:22 Gram Stain - Final Chest Anaerobic Culture - Preliminary Abscess Culture - Final Staphylococcus aureus 06/15/21 13:22 Gram Stain - Final Chest Anaerobic Culture - Preliminary Abscess Culture - Final Staphylococcus aureus A&P Assessment and plan (1) S/P hemodialysis catheter insertion: Assessment Status post 1.? Placement of 16 Singaporean 27 cm long AshSplit tunneled hemodialysis catheter right internal jugular vein 06/20/2021 2.? Fluoroscopic guidance and interpretation for placement of catheter 3.? Ultrasound guidance to access the right internal jugular vein 4.? Cutdown on right internal jugular vein 5.? Repair of right internal jugular vein using 6-0 Prolene Plan Ice packs to the right side of the neck 3-4 times a day Fresh dressing to be applied in the form of gauze 4 x 4 and paper tape Return to surgery office in 1 week. I would highly recommend nutrition consultation patient's albumin is 2.6 Assurance and education All questions have been answered and all concerns have been addressed to patient's satisfaction. Status: Acute Attestations Medical Necessity Statement*: Per admitting service Coding Level of Care Code Acute Lead Applier for g Fwd Diagnoses S/P hemodialysis catheter insertion Z99.2
--- NOTE | 2021-06-21 08:56 | PM.PN ---
Subjective Subjective: Patient was given 2 units of blood yesterday after her procedure, a lot of scarring noted during the procedure, Dr. Victor did update me last evening, Hemodynamically stable Hemoglobin today is 9.7 No signs of neck swelling or difficulty swallowing food, she is tolerating her clear liquid today, Still no bowel movement, passing flatus There is plan to monitor her for 1 more day and discharge her to a senior care on Repeat chest x-ray is unremarkable No acute indication for dialysis Vitals/I&O/Wt Last Vital Signs Temp 97.9 F 06/21/21 07:33 Pulse 87 06/21/21 07:33 Resp 17 06/21/21 07:33 BP 138/77 06/21/21 07:33 Pulse Ox 97 06/21/21 07:33 06/20/21 06/21/21 06/21/21 22:59 06:59 14:59 Intake Total 1800 / 1800 356 / 2156 Output Total 1200 / 2700 1000 / 3700 Balance 600 / -900 -644 / -1544 Weight last 48 hrs Weight 73.709 kg Weight 71.441 kg Physical Exam Narrative: Patient was laying supine I did not appreciate any hematoma or neck swelling No stridor or difficulty breathing She is saturating well on room air No audible wheezing Soft abdomen Does not look fluid overloaded Skin desquamation without any signs of exudate No signs of edema Nonfocal neuro exam EOMI, PERRLA Urinary Catheter Management: Mckeon: Cath Placed During This Visit: yes Urethral Indwelling: Yes Reason for Continuing Indwelling Catheter: Accurate Measurement of Urinary Output in Critically Ill Patients Urinary Catheter Date of Insertion: 06/12/21 Data : 06/21/21 05:34 06/21/21 05:34 Micro: Microbiology 06/15/21 13:22 Gram Stain - Final Chest Anaerobic Culture - Preliminary Abscess Culture - Final Staphylococcus aureus 06/15/21 13:22 Gram Stain - Final Chest Anaerobic Culture - Preliminary Abscess Culture - Final Staphylococcus aureus A&P Assessment and plan (1) S/P hemodialysis catheter insertion: Status: Acute (2) Staphylococcus aureus bacteremia: Status: Acute (3) Pulmonary nodules: Status: Acute (4) Positive blood culture: Status: Acute (5) Port-A-Cath in place: Status: Resolved (6) Vascular dialysis catheter in place: Status: Acute (7) Desquamative dermatitis: Status: Acute (8) ESRD on hemodialysis: Status: Acute (9) Multiple myeloma: Status: Acute Plan MSSA bacteremia Patient will get cefazolin 2 g Saturday and 3 g on Saturday, antibiotics after dialysis I did speak with her livestock trucker yesterday That is post dialysis catheter placement by Dr. Victor on 06/20 There is plan to watch her 1 more day Currently she is on clear liquid, no active stridor or wheezing, no signs of hematoma hemoglobin improved after 2 units PRBC to 9.7 Most likely she will get dialyzed on Saturday there is no acute indication We will touch base with inpatient livestock trucker Repeat blood cultures negative Last antibiotic dose on 06/28 Attestations Medical Necessity Statement*: Discharge tomorrow Time Spent in Patient Care: 20mins Coding Level of Care Code Acute Internal Medicine Nurse Practitioner for Chg Fwd Diagnoses S/P hemodialysis catheter insertion Z99.2 Staphylococcus aureus bacteremia R78.81; B95.61 Pulmonary nodules R91.8 Positive blood culture R78.81 Port-A-Cath in place Z95.828 Vascular dialysis catheter in place Z99.2 Desquamative dermatitis L30.8 ESRD on hemodialysis N18.6; Z99.2 Multiple myeloma C90.00
[2021-06-21] MEDS: sennosides-docusate Tablet 1 TAB PO ×2 (09:49→17:42)
[2021-06-21] MEDS: predniSONE 5 mg Tablet PO (09:49)
[2021-06-21] MEDS: ceFAZolin 1,000 MG in sodium chloride 0.9% (plus) 50 ML 100 MG IV ×2 (10:10→22:41)
--- NOTE | 2021-06-21 14:36 | P.PN_ITS ---
Subjective Subjective: Ms Pickard feels okay, she is just a little bit sore from the procedure that she had yesterday. Did receive 2 units of blood yesterday afternoon. No acute uremic symptoms. No hypervolemic symptoms. Otherwise no acute issues. Medications: Reviewed: Yes Vitals/I&O/Wt Last Vital Signs Temp 98.1 F 06/21/21 12:00 Pulse 105 H 06/21/21 12:00 Resp 18 06/21/21 12:00 BP 128/76 06/21/21 12:00 Pulse Ox 96 06/21/21 12:00 06/20/21 06/21/21 06/21/21 22:59 06:59 14:59 Intake Total 1800 / 1800 356 / 2156 590 / 590 Output Total 1200 / 2700 1000 / 3700 Balance 600 / -900 -644 / -1544 590 / 590 Weight last 48 hrs Weight 73.709 kg Weight 71.441 kg Physical Exam Narrative: Constitutional: Awake, comfortable HEENT: Wet mucosa, no jvp, non icteric Lungs: Bilaterally clear without discernible wheeze, rales in all lung zones CVS: S1 S2, no murmurs Abdo: Soft, BS ok Ext 4: Minimal edema, peripheral perfusion with no cyanosis Neurological: Grossly non-focal Urinary Catheter Management: Mckeon: Cath Placed During This Visit: yes Urethral Indwelling: Yes Reason for Continuing Indwelling Catheter: Accurate Measurement of Urinary Output in Critically Ill Patients Urinary Catheter Date of Insertion: 06/12/21 Data : 06/21/21 05:34 06/21/21 05:34 Micro: Microbiology 06/15/21 13:22 Gram Stain - Final Chest Anaerobic Culture - Preliminary Abscess Culture - Final Staphylococcus aureus 06/15/21 13:22 Gram Stain - Final Chest Anaerobic Culture - Preliminary Abscess Culture - Final Staphylococcus aureus A&P Assessment and plan (1) ESRD on hemodialysis: 1. ESRD Creatinine remained stable and she has no acute indication for dialysis. I did discuss her care with her outpatient healthcare network consultant, Dr Jason. Garry in, ready for DC Dialysis being deferred at this time Dose medication for GFR less than 15 on dialysis. 2. Fevers MSSA noted Lines to be removed NIRAJ negative MRI without abscess Staph cultured from exit site abscess from permacath Cont abx in the outpatient facility 3. Anemia, thrombocytopenia Continue to monitor during hospitalization, likely secondary to myeloma/chemo, will defer management to outpatient research and development chemist 4. Chemistry Minor noncritical aberration including low sodium, acidosis noted, monitor for now I want to avoid sodium bicarb given need to avoid sodium loading 5. Hemodynamics Look pretty good OK for DC, follow up with Dr Jason, will sign off and watch peripherally at this time Cheikh Waddell MD Nephrology [phone] Patient seen and examined via telemedicine, with the assistance of the bedside RN > 25 min spent in evaluation and mgmt of patient Status: Acute Attestations Medical Necessity Statement*: eval for ESRD Coding Level of Care Code Acute Business Development Agent for g Fwd Diagnoses ESRD on hemodialysis N18.6; Z99.2
--- NOTE | 2021-06-21 19:08 | PC.NURSE ---
i reported high pulse 108 to nurse
[2021-06-22 04:00] VITALS: BP 128/70; PULSE 108; RESP 17; TEMP 36.7; O2SAT 94
--- NOTE | 2021-06-22 04:03 | PC.NURSE ---
i reported high pulse 108 to nurse
[2021-06-22 04:27] LABS: Basophils % 0.1 %; Eosinophils # 0.2 10^3/uL (0.0-0.8); Eosinophils % 1.8 %; Hematocrit 26.6 % (37.0-47.0); Hemoglobin 8.8 g/dL (11.5-15.3); Lymphocytes # 0.2 10^3/uL (0.8-4.8); Lymphocytes % 2.2 %; Mean Corpuscular HGB Conc 33.1 g/dL (30.0-36.0); Mean Corpuscular Hemoglobin 30.2 pg (28.0-34.0); Mean Corpuscular Volume 91.4 fl (81-99); Mean Platelet Volume 10.5 fL (7.4-10.4); Monocytes # 0.6 10^3/uL (0.2-0.9); Monocytes % 5.9 %; Neutrophils # 8.98 10^3/uL (1.8-7.7); Neutrophils % 88.6 %; Nucleated Red Blood Cells % 0 %; Platelet Count 200 10^3/cmm (130-400); Red Blood Count 2.91 10^6/uL (4.1-5.3); Red Cell Distribution Width 21.1 % (12.1-15.1); White Blood Count 10.1 10^3/uL (4.0-10.0)
[2021-06-22 04:55] LABS: Calcium 8.4 mg/dL (8.5-10.5); Carbon Dioxide 15 mmol/L (22-29); Chloride 101 mmol/L (98-107); Glomerular Filtration Rate 9.4 mL/min (90-130); Glucose 101 mg/dL (65-115); Osmolality Calculated 304 mOsm/kg (285-295); Sodium 132 mmol/L (136-145)
[2021-06-22 05:26] LABS: Blood Urea Nitrogen 95 mg/dL (8-23)
[2021-06-22 08:00] VITALS: BP 126/63; PULSE 95; RESP 18; TEMP 36.5; O2SAT 96
[2021-06-22] MEDS: sennosides-docusate Tablet 1 TAB PO ×2 (09:16→16:52)
[2021-06-22] MEDS: predniSONE 5 mg Tablet PO (09:16)
[2021-06-22] MEDS: ceFAZolin 1,000 MG in sodium chloride 0.9% (plus) 50 ML 100 MG IV ×2 (10:43→21:47)
[2021-06-22 11:14] VITALS: BP 118/77; PULSE 100; RESP 17; TEMP 37.1; O2SAT 98
[2021-06-22 15:12] LABS: SARS Covid-2 Antigen Negative (Negative)
[2021-06-22 15:51] VITALS: BP 119/69; PULSE 98; RESP 17; TEMP 36.6; O2SAT 96
--- NOTE | 2021-06-22 18:46 | PM.MISC ---
Miscellaneous Note Purpose of Documentation: This is a progress note No overnight events Patient is feeling lethargic and fatigued Did work with physical therapy Does not want her Mckeon catheter removed Adequate urine output No acute indication for dialysis Doing well on room air Fatigue lethargic No leg swelling No signs of hematoma Doing well on room air Nonfocal neuro exam No audible stridor or wheezing S1, S2 Clinical looks euvolemic No signs of cellulitis or skin Continue cefazolin Discharge tomorrow No acute indication for dialysis Hemoglobin stable at 8.8 Afebrile Cultures negative Time: 10 minutes
[2021-06-22 19:31] VITALS: BP 113/75; PULSE 100; RESP 17; TEMP 36.6; O2SAT 97
[2021-06-23] VITALS: BP 102/72; PULSE 96; RESP 16; O2SAT 95
[2021-06-23 04:00] VITALS: BP 122/71; PULSE 107; RESP 16; TEMP 36.7; O2SAT 98
[2021-06-23 06:00] VITALS: BMI 22.8
--- NOTE | 2021-06-23 07:18 | PM.DCS ---
Discharge Providers Date of Admission: 06/12/21 18:19 Date of Discharge: June 23, 2021 Attending Provider at Admission: Heather Maldonado MD Attending Provider at Discharge: Torrie Menjivar MD Diagnoses at Discharge Discharge Diagnosis (1) ESRD on hemodialysis: Status: Acute Reason for Visit Reason for Visit: fever Hospital Course Hospital Course 61-year-old female normally gets her care in [place] transferred here from outside facility when she presented with fever malaise weakness. She has underlying multiple myeloma. She was found to have staph aureus bacteremia on presentation. Both Port-A-Cath and tunneled dialysis catheter culture positive with staph aureus. MSSA bacteremia. Both catheters were removed by Dr. Victor. Small abscess at the insertion site of tunneled catheter noted in the left chest. It showed staph aureus from there as well as from the tip of the port. MRI spine did not show any septic emboli, no signs of endocarditis. She remained in the hospital for about 11 days and become deconditioned hence shelter was recommended. With the use of appropriate antibiotics her cultures remain negative, she remained afebrile. Negative cultures since 06/13. Nephro was consulted. She did not require dialysis throughout her hospitalization. She was making good urine on daily basis remained negative balance. She was putting out more than 1 L a day. Case was discussed with her certified surgical assistant Dr Jason, who recommended cefazolin 2 g Saturday and and 3 g on Saturday after dialysis until 06/28 to cover 2 weeks of IV antibiotics. Although she is making urine, not actively requiring dialysis her outpatient certified surgical assistant is concerned that considering GFR of 8 she might worsen in future and we should go ahead and pursue tunneled catheter placement and antibiotics can be given via permacath after dialysis. Tunneled catheter was placed by Dr. Victor on 06/20, postoperatively patient dropped hemoglobin to 6.4, she was given 2 units PRBC. Pending review general surgery note for further details. After units of PRBC hemoglobin remained stable 8.9. No swelling around the neck no signs of hematoma or active bleed. Chest x-ray did not show any pneumothorax or any active signs of bleeding. She will be discharged to [facility]. Patient certified surgical assistant recommended twice daily Lasix, I have added low-dose potassium supplementation. Her next dialysis chair time is on Sunday 06/25. I have updated Dr. Jason Physical Exam Narrative: Patient was laying supine I did not appreciate any hematoma or neck swelling No stridor or difficulty breathing She is saturating well on room air No audible wheezing Soft abdomen Does not look fluid overloaded Skin desquamation without any signs of exudate No signs of edema Nonfocal neuro exam EOMI, PERRLA Urinary Catheter Management: Mckeon: Cath Placed During This Visit: yes Urethral Indwelling: Yes Reason for Continuing Indwelling Catheter: Accurate Measurement of Urinary Output in Critically Ill Patients Urinary Catheter Date of Insertion: 06/12/21 Discharge Data Studies Completed and Pending Completed Studies During Hospitalization Category Date Time Status CT kidney stone [id number] Routine Cat Scan 06/12/21 20:34 Completed XR chest 1V portable [id number] Routine Exams 06/20/21 16:49 Completed XR chest 1V portable [id number] Routine Exams 06/21/21 06:00 Completed MR lumbar spine wo con* [id number] Routine MRI 06/16/21 10:30 Completed MR thoracic spin wo con* [id number] Routine MRI 06/16/21 10:30 Completed NIRAJ [CV. echo transesophageal [id number]] Routine Ultrasound 06/15/21 08:00 Completed Pending at discharge Category Date Time Status Abscess Culture and Gram Stain Routine Lab 06/15/21 13:22 Results Abscess Culture and Gram Stain Routine Lab 06/15/21 13:22 Results Anaerobic Culture Routine Lab 06/15/21 13:22 Results Anaerobic Culture Routine Lab 06/15/21 13:22 Results Radiology Impressions Abdomen/Pelvis CT 06/12/21 20:34 IMPRESSION: 1. No acute abdominal or pelvic findings. 2. Multi fibroid uterus and nonobstructing gallstones. 3. Pleural effusions with basilar atelectasis. 4. Multiple small nodular opacities in both lungs, significance uncertain. These could be postinflammatory but metastatic disease is not ruled out. Recommend comparison with priors, if available. If not, short-term follow-up. 5. Subtle area of sclerosis and L1. Suspect a hemangioma but the appearance is not definitive. Lumbar Spine MRI 06/16/21 10:30 IMPRESSION: 1. No marrow edema or fracture. 2. Moderate degenerative disc space narrowing at L5-S1. 3. Mild encroachment into the subarticular recesses bilaterally at L5-S1 with encroachment upon the S1 nerve roots. Slightly greater encroachment with displacement on the LEFT S1 nerve root. 4. Mild encroachment upon the subarticular recesses at L4-5. 5. Fluid in the facet joints at L1-2, L3-4 and L4-5 from synovitis. Thoracic Spine MRI 06/16/21 10:30 IMPRESSION: 1. No high-grade central or foraminal stenosis. 2. Long mild RIGHT scoliosis thoracic spine. 3. No marrow edema. 4. Small layering bilateral pleural effusions. C-Arm Fluoroscopy 06/20/21 11:37 Impression: Insertion of a right dialysis catheter. Chest X-Ray 06/21/21 06:00 IMPRESSION: No significant cardiopulmonary abnormality. Laboratory Results WBC 10.1 10^3/uL (4.0-10.0) H 06/22/21 03:47 RBC 2.91 10^6/uL (4.1-5.3) L 06/22/21 03:47 Hgb 8.8 g/dL (11.5-15.3) L 06/22/21 03:47 Hct 26.6 % (37.0-47.0) L 06/22/21 03:47 MCV 91.4 fl (81-99) 06/22/21 03:47 MCH 30.2 pg (28.0-34.0) 06/22/21 03:47 MCHC 33.1 g/dL (30.0-36.0) 06/22/21 03:47 RDW 21.1 % (12.1-15.1) H 06/22/21 03:47 Plt Count 200 10^3/cmm (130-400) 06/22/21 03:47 MPV 10.5 fL (7.4-10.4) H 06/22/21 03:47 Neut % (Auto) 88.6 % 06/22/21 03:47 Lymph % (Auto) 2.2 % 06/22/21 03:47 [place] % (Auto) 5.9 % 06/22/21 03:47 Eos % (Auto) 1.8 % 06/22/21 03:47 Baso % (Auto) 0.1 % 06/22/21 03:47 Neut # (Auto) 8.98 10^3/uL (1.8-7.7) H 06/22/21 03:47 Lymph # (Auto) 0.2 10^3/uL (0.8-4.8) L 06/22/21 03:47 [place] # (Auto) 0.6 10^3/uL (0.2-0.9) 06/22/21 03:47 Eos # (Auto) 0.2 10^3/uL (0.0-0.8) 06/22/21 03:47 Baso # (Auto) 0.0 10^3/uL (0.0-0.1) 06/22/21 03:47 Nucleated RBC % (auto) 0 % 06/22/21 03:47 Nucleated RBCs # 0.0 /100WBC 06/22/21 03:47 Sodium 132 mmol/L (136-145) L 06/22/21 03:47 Potassium 4.0 mmol/L (3.5-5.1) 06/22/21 03:47 Chloride 101 mmol/L (98-107) 06/22/21 03:47 Carbon Dioxide 15 mmol/L (22-29) L 06/22/21 03:47 Anion Gap 20.0 (5-19) H 06/22/21 03:47 BUN 95 mg/dL (8-23) H* 06/22/21 03:47 Creatinine 4.7 mg/dL (0.5-0.9) H 06/22/21 03:47 GFR Calculation 9.4 mL/min (90-130) L 06/22/21 03:47 Glucose 101 mg/dL (65-115) 06/22/21 03:47 Calculated Osmolality 304 mOsm/kg (285-295) H 06/22/21 03:47 Lactic Acid 1.5 mmol/L (0.5-2.2) 06/12/21 19:43 Calcium 8.4 mg/dL (8.5-10.5) L 06/22/21 03:47 Phosphorus 5.8 mg/dL (2.5-4.5) H 06/13/21 05:15 Magnesium 2.6 mg/dL (1.7-2.3) H 06/13/21 05:15 Total Bilirubin 0.4 mg/dL (0.15-1.2) 06/19/21 03:35 AST 13 U/L (0-32) 06/19/21 03:35 ALT 40 U/L (0-33) H 06/19/21 03:35 Alkaline Phosphatase 111 IU/L (35-105) H 06/19/21 03:35 Creatine Kinase 37 U/L (26-192) 06/16/21 02:48 Total Protein 5.0 g/dL (6.6-8.7) L 06/19/21 03:35 Albumin 2.6 g/dL (3.5-5.2) L 06/19/21 03:35 Globulin 2.4 g/dL (1.3-4.6) 06/19/21 03:35 Procalcitonin 3.56 ng/mL (0-0.5) H 06/20/21 02:23 Urine Color Yellow (Yellow) 06/12/21 20:30 Urine Appearance Clear (CLEAR) 06/12/21 20:30 Urine pH 5 (5-7) 06/12/21 20:30 Ur Specific [place] 1.010 (1.005-1.030) 06/12/21 20:30 Urine Protein 1+ (Negative) H 06/12/21 20:30 Urine Glucose (UA) Norm (Normal) 06/12/21 20:30 Urine Ketones Negative (Negative) 06/12/21 20:30 Urine Blood 2+ (Negative) H 06/12/21 20:30 Urine Nitrate Positive (Negative) H 06/12/21 20:30 Urine Bilirubin Neg (Negative) 06/12/21 20:30 Urine Urobilinogen Norm mg/dL (Negative) 06/12/21 20:30 Ur Leukocyte Esterase 2+ (Negative) H 06/12/21 20:30 Urine RBC 0-4 /hpf (0-2) H 06/12/21 20:30 Urine WBC Too numerous to cnt /hpf (0-5) H 06/12/21 20:30 Ur Squamous Epith Cells 0-4 /hpf (0-5) H 06/12/21 20:30 Amorphous Sediment 1+ /hpf 06/12/21 20:30 Urine Bacteria 1+ /hpf (NONE) H 06/12/21 20:30 Random Vancomycin 22.6 ug/mL (20.0-40.0) 06/20/21 02:23 SARS-CoV-2 Ag (Rapid) Negative (Negative) 06/22/21 14:38 Blood Type O Negative 06/20/21 17:10 Rho(D) Type Negative 06/20/21 17:10 Antibody Screen Negative 06/20/21 17:10 Crossmatch See Detail 06/20/21 17:10 Vitals Last Vital Signs Temp 98.0 F 06/23/21 04:00 Pulse 107 H 06/23/21 04:00 Resp 16 06/23/21 04:00 BP 122/71 06/23/21 04:00 Pulse Ox 98 06/23/21 04:00 Discharge Plan Discharge Patient Disposition: Xfer SNF Condition: Stable Prescriptions: New cefazolin 1 gram recon soln 2 g IV .alternate days Qty: 1 0RF Rx Instructions: 2 g Saturday and , 3 g on Saturday After dialysis midodrine 5 mg tablet 2.5 mg PO TID Qty: 20 0RF Rx Instructions: do not give last dose of day after 6PM or within 4 hrs of bedtime Lasix 20 mg tablet 20 mg PO BID Qty: 60 0RF potassium chloride 10 mEq tablet extended release 10 meq PO DAILY Qty: 20 0RF Continued famotidine 20 mg Tablet See Rx Instructions .ROUTE .COMPLEX 0RF Rx Instructions: 20 mg orally on dialysis days after dialysis levothyroxine 50 mcg Tablet 50 mcg PO DAILY 0RF simvastatin 20 mg Tablet 20 mg PO DAILY 0RF lidocaine HCl 2.5 % Ointment 1 ea TOPICAL DAILY PRN (Reason: Port/Catheter Care) 0RF hydroxyzine HCl 25 mg Tablet 25 mg PO QID 0RF acyclovir 200 mg Capsule 200 mg PO BID 0RF clobetasol 0.05 % Ointment 1 applic TOPICAL DAILY 0RF Rx Instructions: mix with moisturizer and apply to rash Discharge Orders: Discharge Order (Routine); Ordered 06/23/21 Ordered By: Torrie Menjivar [facility]errals: [facility] [Outside] Patient Instructions: Opioid Safety Discharge Attestations Time Spent in Discharge Care*: less than 30 min Quality Metrics Clinical Quality Measures [ No reported AMI, CVA or VTE this stay] Coding Level of Care Code Acute Chg FW DC note Diagnoses ESRD on hemodialysis N18.6; Z99.2
[2021-06-23 07:29] VITALS: BP 130/74; PULSE 95; RESP 18; TEMP 36.5; O2SAT 94
[2021-06-23] MEDS: sennosides-docusate Tablet 1 TAB PO (07:29)
[2021-06-23] MEDS: predniSONE 5 mg Tablet PO (07:29)
--- NOTE | 2021-06-23 08:44 | PC.NURSE ---
Called and gave report to Jennifer at [facility].
[2021-06-23 09:27] VITALS: BP 130/74; PULSE 95; RESP 18; TEMP 36.5; O2SAT 94
== END 2021-06-23 09:28 | disposition skilled nursing facility (03) | DRG 264 ==
PROVIDERS: Anesthesiology; Internal Medicine; Internal Medicine Cardiovascular Disease; Surgery; Admitting Provider Hospitalist; Visit Provider Internal Medicine
PROC: B24BZZ4 Ultrasonography of Heart with Aorta, Transesophageal (ICD-10-PCS; CPT 93312; principal; 2021-06-15 08:00)
PROC: 0JB60ZZ Excision of Chest Subcutaneous Tissue and Fascia, Open Approach (ICD-10-PCS; CPT 36589; principal; 2021-06-15 11:30)
PROC: 0JB60ZZ Excision of Chest Subcutaneous Tissue and Fascia, Open Approach (ICD-10-PCS; 2021-06-15 11:30)
PROC: 0JH63XZ Insertion of Tunneled Vascular Access Device into Chest Subcutaneous Tissue and Fascia, Percutaneous Approach (ICD-10-PCS; principal; 2021-06-20 12:30)
DX: T80.219A Unspecified infection due to central venous catheter, initial encounter (principal); N18.6 End stage renal disease; A41.9 Sepsis, unspecified organism; T82.7XXA Infection and inflammatory reaction due to other cardiac and vascular devices, implants and grafts, initial encounter; C90.00 Multiple myeloma not having achieved remission; N39.0 Urinary tract infection, site not specified; E27.40 Unspecified adrenocortical insufficiency; I97.418 Intraoperative hemorrhage and hematoma of a circulatory system organ or structure complicating other circulatory system procedure; B95.61 Methicillin susceptible Staphylococcus aureus infection as the cause of diseases classified elsewhere; Y81.8 Miscellaneous general- and plastic-surgery devices associated with adverse incidents, not elsewhere classified; Z99.2 Dependence on renal dialysis; E78.5 Hyperlipidemia, unspecified; E03.9 Hypothyroidism, unspecified; I95.9 Hypotension, unspecified; L30.8 Other specified dermatitis; D64.9 Anemia, unspecified; D69.6 Thrombocytopenia, unspecified; R91.8 Other nonspecific abnormal finding of lung field; Z79.899 Other long term (current) drug therapy
CPT/HCPCS: 36415; 36430; 36569; 36591; 71045; 72146; 72148; 74176; 77001; 80048; 80053; 80202; 81001; 82550; 82565; 83605; 83735; 84100; 84145; 85014; 85018; 85025; 86403; 86850; 86900; 86920; 87040; 87070; 87075; 87077; 87086; 87150; 87186; 87205; 87426; 87449; 87641; 93312; 93320; 93325; 96372; 97110; 97161; 97167; 97530; 97535; C1750; G0379; J0690; J0696; J1644; J1720; J1956; J2370; J2405; J2704; J2997; J3010; J3370; J7030; J7050; J7512; P9016; P9041; Q3014